=== PATIENT | male | born 1960 | race Caucasian/White ===

== ENCOUNTER 2016-09-16 22:33 | Emergency (ER) | payer OTHER ==
[~2016-09-16] VITALS: Ht 177.8 cm; Wt 126.9 kg
[~2016-09-16 22:33] MED LIST: ASPI325T PO; BETA0.054 TOPICAL; CALC500T35; CARV3.12 PO; CIAL10TA PO; FISH500C; GABA800T PO; IRBE75TA24 PO; MULT-135 PO; NITR1SUB3 SL; SIMV20TA PO
[2016-09-16 22:37] VITALS: BP 121/72; PULSE 72; RESP 20; TEMP 98.9; O2SAT 98
--- NOTE | 2016-09-16 23:11 | PD ---
HPI Chief Complaint: Musculoskeletal Complaint Time Seen by Provider: 23:04 Travel History International Travel<30 days: No Contact w/Intl Traveler<30days: No Traveled to known affect area: No History of Present Illness HPI This 55-year-old male says he had a fall this morning. He was standing on approximately fell on rocks and hit his right side of his chest and abdomen on the rocks. He is having increasing pain. The pain is aggravated by deep breathing. He took Motrin with minimal relief. He has not had fever or chills. It is a sharp pain aggravated by breathing. He is also having some pain in his abdomen. There is been no vomiting or diarrhea. He had no other injuries from fall. He takes aspirin daily, no other anticoagulants. He has an AICD. He has had 2 myocardial infarctions PFSH Past Medical History Hx Anticoagulant Therapy: Yes Cardiac Catheterization: Yes Cardiovascular Problems: Yes High Cholesterol: Yes Cerebrovascular Accident: Yes ( X2 2006) Diminished Hearing: No ?: Not Past Surgical History AICD: Yes Cardiac Surgery: Yes (CARDIAC DEFIBRILLATIOR) Coronary Stent: Yes Joint Replacement: Yes (R TKR) Social History Alcohol Use: No (OCC) Tobacco Use: No (QUIT 2006) Substance Use: No Allergies-Medications (Allergen,Severity, Reaction): Coded Allergies: Integrilin (Verified Adverse Reaction, Severe, BLEEDING, 02/18/16) Reported Meds & Prescriptions Reported Meds & Active Scripts Active Cialis (Tadalafil) 10 Mg Tab 10 Mg PO ONCE PRN Do not exceed 1 dose/day. Betamethasone Dipropionate Topical 0.05% Oint 1 Applic TOPICAL ONCE Reported Simvastatin 20 Mg Tab 20 Mg PO DAILY Nitroglycerin SL (Nitroglycerin) 0.4 Mg Subl 0.4 Mg SL DIRECTED PRN ONE TABLET UNDER THE TONGUE NEEDED FOR CHEST PAIN, MAY REPEAT EVERY FIVE MINUTES FOR A TOTAL OF 3 DOSES OR CALL 911 IF NO RELIEF Carvedilol 3.125 Mg Tab 3.125 Mg PO BID Calcium (Oyster Shell) 500 Mg Tab BID Multi Vitamin (Multiple Vitamin) 1 Tab Tab 1 Tab PO DAILY Fish Oil ([place]-3 Fatty Acids) 500 Mg Cap Aspirin 325 Mg Tab 325 Mg PO DAILY Avapro (Irbesartan) 75 Mg Tab 75 Mg PO DAILY Gabapentin 800 Mg Tab 800 Mg PO TID Review of Systems General / Constitutional: No: Fever, Chills Eyes: No: Diploplia, Blurred Vision HENT: No: Headaches, Vertigo Cardiovascular: Positive: Chest Pain or Discomfort Respiratory: Positive: Pleuritic Pain Gastrointestinal: Positive: Abdominal Pain Genitourinary: No: Frequency, Dysuria Musculoskeletal: No: Myalgias, Arthralgias Skin: No Rash Physical Exam Narrative GENERAL: Well-developed male SKIN: Warm and dry. HEAD: Atraumatic. Normocephalic. EYES: Pupils equal and round. No scleral icterus. No injection or drainage. ENT: No nasal bleeding or discharge. Mucous membranes pink and moist. NECK: Trachea midline. No JVD. CARDIOVASCULAR: Regular rate and rhythm. No murmur appreciated. RESPIRATORY: No accessory muscle use. Clear to auscultation. Breath sounds equal bilaterally. There is ecchymosis on the right side of the chest wall. The wall chest wall is quite tender though I don't feel crepitus GASTROINTESTINAL: Abdomen soft, there is right upper quadrant tenderness with local guarding nondistended. Hepatic and splenic margins not palpable. MUSCULOSKELETAL: No obvious deformities. No clubbing. No cyanosis. No edema. NEUROLOGICAL: Awake and alert. No obvious cranial nerve deficits. Motor grossly within normal limits. Normal speech. PSYCHIATRIC: Appropriate mood and affect; insight and judgment normal. Data Data Last Documented VS Vital Signs Date Time Temp Pulse Resp B/P Pulse Ox O2 Delivery O2 Flow Rate FiO2 09/16/16 22:47 16 09/16/16 22:37 98.9 72 121/72 98 Orders Complete Blood Count With Diff (09/16/16 23:04) Comprehensive Metabolic Panel (09/16/16 23:04) Sodium Chlor 0.9% 1000 Ml Inj (Ns 1000 M (09/16/16 23:15) Ondansetron Inj (Zofran Inj) (09/16/16 23:15) Hydromorphone Pf Inj (Dilaudid Pf Inj) (09/16/16 23:15) Chest, Single Ap (09/16/16 23:04) Ct Abd/Pel W Iv Contrast(Rout) (09/16/16 23:04) Labs Laboratory Tests Test 09/16/16 23:20 Sodium Level 140 MEQ/L Potassium Level 4.0 MEQ/L Chloride Level 104 MEQ/L MDM Medical Decision Making Medical Screen Exam Complete: Yes Emergency Medical Condition: Yes Medical Record Reviewed: Yes Differential Diagnosis Differential includes chest wall pain, rib fracture, liver injury Narrative Course Workup including chest x-ray and CT scan of the abdomen and pelvis have been ordered. Chest x-ray does not show any fracture and lung pack appear clear. Diagnosis Primary Impression: Chest wall contusion Scripts Oxycodone-Acetaminophen (Percocet)10-325 mg Tab1 Tab PO Q4H PRN (PAIN) #30 TAB Ref 0 Prov:Kimani Fagan MD 09/16/16 Disposition: 01 DISCHARGE HOME Condition: Stable Kimani Fagan MD Sep 16, 2016 23:11
[2016-09-16] MEDS ORDERED: SODIUM CHLOR 0.9% 1000 ML INJ 1,000 ML IV SCH (23:15)
[2016-09-16] MEDS ORDERED: ONDANSETRON HCL 4 MG/2 ML VIAL IV PUSH ONE (23:15)
[2016-09-16] MEDS ORDERED: HYDROmorphone HCL PF 1 MG/ML VIAL IV PUSH ONE (23:15)
[2016-09-16 23:34] LABS: AUTOMATED NEUTROPHIL # 6.9 TH/MM3 (1.8-7.7); BASOPHIL # 0.1 TH/MM3 (0-0.2); BASOPHIL % 0.8 % (0.0-2.0); EOSINOPHIL # 0.3 TH/MM3 (0-0.4); HEMATOCRIT 39.2 % (39.0-51.0); LYMPH % 25.6 % (9.0-44.0); LYMPHOCYTE # 2.8 TH/MM3 (1.0-4.8); MEAN CELL VOLUME 90.6 FL (80.0-100.0); MEAN CORPUSCULAR HEMOGLOBIN 30.5 PG (27.0-34.0); MEAN CORPUSCULAR HGB CONC 33.7 % (32.0-36.0); MONO % 7.1 % (0.0-8.0); NEUT % 63.5 % (16.0-70.0); PLATELET COUNT 212 TH/MM3 (150-450); RED BLOOD COUNT 4.33 MIL/MM3 (4.50-5.90); RED CELL DISTRIBUTION WIDTH 13.6 % (11.6-17.2); WHITE BLOOD COUNT 10.9 TH/MM3 (4.0-11.0)
[2016-09-16 23:41] LABS: CHLORIDE 104 MEQ/L (98-107); SODIUM (NA) 140 MEQ/L (136-145)
[2016-09-16] MEDS ORDERED: PERC10TA27 PO (23:43)
[2016-09-16 23:45] LABS: ANION GAP 7 MEQ/L (5-15); BICARBONATE 28.9 MEQ/L (21.0-32.0); BLOOD UREA NITROGEN 19 MG/DL (7-18)
[2016-09-16 23:48] LABS: ALT (GPT) 35 U/L (12-78); AST (GOT) 20 U/L (15-37); GLOMERULAR FILTRATION RATE 79 ML/MIN (>89)
[2016-09-16 23:50] LABS: TOTAL BILIRUBIN ADULT 0.3 MG/DL (0.2-1.0)
[2016-09-16 23:51] LABS: ALKALINE PHOSPHATASE 79 U/L (45-117)
--- NOTE | 2016-09-16 23:51 | RADHPO ---
EXAM DATE/TIME: 09/16/2016 23:35 [facility] COMPARISON: CHEST SINGLE AP, February 18, 2016, 19:43. INDICATIONS : Right chest pain after falling MEDICAL HISTORY : None. SURGICAL HISTORY : Pacemaker. ENCOUNTER: Initial ACUITY: 1 day PAIN SCORE: 8/10 LOCATION: Right chest FINDINGS: A single view of the chest demonstrates the lungs to be symmetrically aerated without evidence of mas s, infiltrate or effusion. The cardiomediastinal contours are unremarkable. There is a pacemaker ove rlying the left chest. Osseous structures are intact. No significant change. CONCLUSION: No acute disease. No significant change has occurred. Christopher Parekh MD on September 16, 2016 at 23:49 Board Certified Radiologist. This report was verified electronically.
[2016-09-16 23:58] LABS: HEMO FLAGS DIFF FINAL
[2016-09-17] MEDS ORDERED: HYDROmorphone HCL PF 1 MG/ML VIAL IV PUSH ONE
[2016-09-17] MEDS ORDERED: IOHEXOL 350 MG/ML 10 ML VIAL (for RAD DIAG) IV ONE (00:35)
--- NOTE | 2016-09-17 00:42 | RADHPO ---
EXAM DATE/TIME: 09/17/2016 00:14 [facility] COMPARISON: No previous studies available for comparison. INDICATIONS : Mechanical fall. Right sided chest and abdomen trauma. IV CONTRAST: 96 cc Omnipaque 350 (iohexol) IV ORAL CONTRAST: No oral contrast ingested. RADIATION DOSE: 30.96 CTDIvol (mGy) MEDICAL HISTORY : None SURGICAL HISTORY : Coronary artery stent. Defibrillator. ENCOUNTER: Initial ACUITY: 1 day PAIN SCALE: 6/10 LOCATION: Right Abdomen. TECHNIQUE: Volumetric scanning of the abdomen and pelvis was performed. Using automated exposure control and ad justment of the mA and/or kV according to patient size, radiation dose was kept as low as reasonably achievable to obtain optimal diagnostic quality images. FINDINGS: LOWER LUNGS: The visualized lower lungs are clear. No evidence of pneumothorax. LIVER: Homogeneous density without lesion. There is no dilation of the biliary tree. No calcified gallston es. SPLEEN: Normal size without lesion. PANCREAS: Within normal limits. KIDNEYS: Normal in size and shape. There is no mass, stone or hydronephrosis. ADRENAL GLANDS: Within normal limits. VASCULAR: There is no aortic aneurysm. Atherosclerotic changes BOWEL/MESENTERY: The stomach, small bowel, and colon demonstrate no acute abnormality. There is no free intraperitone al air or fluid. A few scattered diverticula are noted along the sigmoid colon. No inflammatory de dios es are demonstrated. ABDOMINAL WALL: Within normal limits. RETROPERITONEUM: There is no lymphadenopathy. BLADDER: No wall thickening or mass. REPRODUCTIVE: Within normal limits. INGUINAL: There is no lymphadenopathy or hernia. MUSCULOSKELETAL: There are nondisplaced fractures involving the right ninth, 10th and 11th ribs. Primary bony degenera tive changes of the lumbar spine and pelvis. CONCLUSION: 1. Nondisplaced fractures of the ninth, 10th and 11th ribs. 2. Otherwise, unremarkable exam. Christopher Parekh MD on September 17, 2016 at 0:35 Board Certified Radiologist. This report was verified electronically.
[2016-09-17] MEDS ORDERED: oxyCODONE/ACETAMINOPHEN 7.5 MG/325 MG TAB PO ONE (01:00)
[2016-09-17] MEDS ORDERED: ONDANSETRON HCL 4 MG/2 ML VIAL IV ONE (01:00)
[2016-09-17 01:17] VITALS: BP 148/77
[2016-09-25] MEDS ORDERED: ACYC800T PO (11:58)
[2016-09-25] MEDS ORDERED: SIMV20TA PO (11:58)
[2016-09-25] MEDS ORDERED: CARV3.12 PO (11:58)
[2016-09-25] MEDS ORDERED: ALBUAER3 INH (11:59)
[2016-09-25] MEDS ORDERED: OXYC-432 PO (12:00)
[2016-10-09] MEDS ORDERED: OXYC1CAP PO (11:47)
[2016-11-09] MEDS ORDERED: VIAG100T PO (09:01)
[2016-11-09] MEDS ORDERED: DOXY100C PO (09:02)
[2016-11-09] MEDS ORDERED: ACYC800T PO (09:03)
[2016-11-09] MEDS ORDERED: CIAL20TA PO (13:41)
== END 2016-09-17 01:21 | disposition home or self-care (01) ==
LOC: PHED 22:33
DX: S20.211A Contusion of right front wall of thorax, initial encounter (principal); S22.41XA Multiple fractures of ribs, right side, initial encounter for closed fracture; I25.2 Old myocardial infarction; E78.00 Pure hypercholesterolemia, unspecified; Z79.82 Long term (current) use of aspirin; Z95.810 Presence of automatic (implantable) cardiac defibrillator; Z86.73 Personal history of transient ischemic attack (TIA), and cerebral infarction without residual deficits; Z87.891 Personal history of nicotine dependence; W19.XXXA Unspecified fall, initial encounter
CPT/HCPCS: 71010; 74177; 80053; 85025; 96361; 96374; 96375; 96376; 99284; J1170; J2405; J7030; Q9967

== ENCOUNTER 2016-12-14 14:43 | Observation (INO) | payer OTHER ==
[~2016-12-14] VITALS: Ht 177.8 cm; Wt 115.5 kg
[2016-12-14] VITALS (9 sets, daily range): BP systolic 103–147; BP diastolic 51–79; PULSE 67–86; RESP 16–32; TEMP 97.7–98.9; O2SAT 97–100
[~2016-12-14 14:43] MED LIST changes: +ACYC800T PO; +ALBUAER3 INH; -CIAL10TA PO; +CIAL20TA PO; +DOXY100C PO; -NITR1SUB3 SL; +OXYC1CAP PO
[2016-12-14] MEDS ORDERED: SODIUM CHLORIDE 0.9% FLUSH 10 ML FLUSH IVF PRN (15:00)
[2016-12-14] MEDS ORDERED: SODIUM CHLORID 0.9% 500 ML INJ 500 ML IV ONE ×2 (15:00→17:45)
[2016-12-14] MEDS ORDERED: NITROGLYCERIN 0.4 MG SL 25 TABS/BTL SL ONE (15:00)
--- NOTE | 2016-12-14 15:06 | PD ---
HPI Chief Complaint: Chest Pain Time Seen by Provider: 14:49 Travel History International Travel<30 days: No Contact w/Intl Traveler<30days: No Traveled to known affect area: No History of Present Illness HPI 56-year-old male presents with 1 hour onset of chest pain. Feels like pressure. This occurred while he was at work. He states when it started he felt like he was gonna pass out but did not lose consciousness. He states at its intensity it was 7 out of 10. Now at rest it is 4 out of 10. He states he had a heart attack twice in 2006. He had a stent placed on his first catheterization and when they followed it up they just monitored him. He states he had a bad reaction to Integrilin where he needed multiple transfusions. He states that he follows with Dr. Carter and his last stress test was 2 years ago and his last catheterization was in 2006. He states that he had an aspirin today. He denies other concurrent complaints. PFSH Past Medical History Hx Anticoagulant Therapy: Yes Atrial Fibrillation: Yes Cardiac Catheterization: Yes Cardiovascular Problems: Yes High Cholesterol: Yes Cerebrovascular Accident: Yes ( X2 2006) Diminished Hearing: No Myocardial Infarction: Yes (X2) Past Surgical History AICD: Yes Cardiac Surgery: Yes (CARDIAC DEFIBRILLATIOR) Coronary Stent: Yes Joint Replacement: Yes (R TKR) Social History Alcohol Use: No (OCC) Tobacco Use: No (QUIT 2006) Substance Use: No Allergies-Medications (Allergen,Severity, Reaction): Coded Allergies: Integrilin (Verified Adverse Reaction, Severe, BLEEDING, 02/18/16) Reported Meds & Prescriptions Reported Meds & Active Scripts Active Cialis (Tadalafil) 20 Mg Tab 20 Mg PO DAILY PRN Do not exceed 1 dose/day. Acyclovir 800 Mg Tab 800 Mg PO 5 TIMES A DAY Proair Hfa 8.5 GM Inh (Albuterol Sulfate) 90 Mcg/Act Aer 2 Puff INH Q4-6H PRN 108 mcg/actuation Simvastatin 20 Mg Tab 20 Mg PO DAILY Carvedilol 3.125 Mg Tab 3.125 Mg PO BID Reported Calcium (Oyster Shell) 500 Mg Tab BID Multi Vitamin (Multiple Vitamin) 1 Tab Tab 1 Tab PO DAILY Fish Oil ([place]-3 Fatty Acids) 500 Mg Cap Aspirin 325 Mg Tab 325 Mg PO DAILY Avapro (Irbesartan) 75 Mg Tab 75 Mg PO DAILY Gabapentin 800 Mg Tab 800 Mg PO TID Review of Systems Except as stated in HPI: all other systems reviewed are Neg Physical Exam Narrative GENERAL: Well-nourished, well-developed patient. SKIN: Warm and diaphoretic, erythema noted to face and neck HEAD: Normocephalic and atraumatic. EYES: No injection or drainage. ENT: No nasal drainage noted. NECK: Supple, trachea midline. CARDIOVASCULAR: Regular rate and rhythm RESPIRATORY: Breath sounds equal bilaterally at apices. No accessory muscle use. GASTROINTESTINAL: Abdomen soft, non-tender, nondistended. EXTREMITIES: No edema. NEUROLOGICAL: Awake and alert. Motor and sensory grossly within normal limits. Normal speech. Data Data Last Documented VS Vital Signs Date Time Temp Pulse Resp B/P Pulse Ox O2 Delivery O2 Flow Rate FiO2 12/14/16 14:53 100 Nasal Cannula 2 12/14/16 14:49 97.7 78 24 138/79 Orders Electrocardiogram (12/14/16 14:51) B-Type Natriuretic Peptide (12/14/16 14:51) Ckmb (Isoenzyme) Profile (12/14/16 14:51) Complete Blood Count With Diff (12/14/16 14:51) Comprehensive Metabolic Panel (12/14/16 14:51) Magnesium (Mg) (12/14/16 14:51) Prothrombin Time / Inr (Pt) (12/14/16 14:51) Act Partial Throm Time (Ptt) (12/14/16 14:51) Troponin I (12/14/16 14:51) Chest, Single Ap (12/14/16 14:51) Ecg Monitoring (12/14/16 14:51) Bilateral Bp Monitoring (12/14/16 14:51) Iv Access Insert/Monitor (12/14/16 14:51) Oximetry (12/14/16 14:51) Oxygen Administration (12/14/16 14:51) Sodium Chloride 0.9% Flush (Ns Flush) (12/14/16 15:00) Sodium Chlorid 0.9% 500 Ml Inj (Ns 500 M (12/14/16 15:00) Nitroglycerin Sl (Nitrostat Sl) (12/14/16 15:00) Electrocardiogram (12/14/16 ) CKMB (12/14/16 14:52) CKMB% (12/14/16 14:52) Nitroglycerin 2% Oint (Nitroglycerin 2% (12/14/16 17:00) Consult Cardiology (12/14/16 ) Nitroglycerin-Dextrose Inj (Nitroglyceri (12/14/16 17:45) Heparin Infusion ANNIA.Q1H (12/14/16 17:32) Heparin Inj (Heparin Inj) (12/14/16 17:45) Heparin Inj (Heparin Inj) (12/14/16 23:45) Heparin Inj (Heparin Inj) (12/14/16 23:45) Heparin-D5w Inj (Heparin-D5w Inj) (12/14/16 17:45) Cbc No Diff, Includes Plts (12/17/16 06:00) Act Partial Throm Time (Ptt) (12/15/16 00:32) Occult Blood (Hemoccult) Stool (12/14/16 17:32) (Hub Use Only)Inp Phy Cons/Ref (12/14/16 ) Admit Order (Ed Use Only) (12/14/16 17:35) Labs Laboratory Tests Test 12/14/16 14:52 White Blood Count 9.4 TH/MM3 Red Blood Count 4.29 MIL/MM3 Hemoglobin 13.6 GM/DL Hematocrit 39.0 % Mean Corpuscular Volume 90.9 FL Mean Corpuscular Hemoglobin 31.7 PG Mean Corpuscular Hemoglobin 34.9 % Concent Red Cell Distribution Width 14.5 % Platelet Count 228 TH/MM3 Mean Platelet Volume 8.2 FL Neutrophils (%) (Auto) 59.1 % Lymphocytes (%) (Auto) 30.4 % Monocytes (%) (Auto) 8.1 % Eosinophils (%) (Auto) 1.6 % Basophils (%) (Auto) 0.8 % Neutrophils # (Auto) 5.6 TH/MM3 Lymphocytes # (Auto) 2.9 TH/MM3 Monocytes # (Auto) 0.8 TH/MM3 Eosinophils # (Auto) 0.1 TH/MM3 Basophils # (Auto) 0.1 TH/MM3 CBC Comment DIFF FINAL Differential Comment Prothrombin Time 12.0 SEC Prothromb Time International 1.1 RATIO Ratio Activated Partial 27.3 SEC Thromboplast Time Sodium Level 140 MEQ/L Potassium Level 3.7 MEQ/L Chloride Level 108 MEQ/L Carbon Dioxide Level 23.0 MEQ/L Anion Gap 9 MEQ/L Blood Urea Nitrogen 13 MG/DL Creatinine 0.94 MG/DL Estimat Glomerular Filtration 83 ML/MIN Rate Random Glucose 95 MG/DL Calcium Level 8.7 MG/DL Magnesium Level 1.9 MG/DL Total Bilirubin 0.5 MG/DL Aspartate Amino Transf 27 U/L (AST/SGOT) Alanine Aminotransferase 42 U/L (ALT/SGPT) Alkaline Phosphatase 69 U/L Total Creatine Kinase 293 U/L Creatine Kinase MB 6.3 NG/ML Troponin I LESS THAN 0.02 NG/ML B-Type Natriuretic Peptide 43 PG/ML Total Protein 7.1 GM/DL Albumin 3.7 GM/DL MDM Medical Decision Making Medical Screen Exam Complete: Yes Emergency Medical Condition: Yes Medical Record Reviewed: Yes (past history confirmed) Interpretation(s) EKG without STEMI criteria, normal sinus rhythm, no change from prior tracing Repeat EKG without change or STEMI criteria CBC & BMP Diagram 12/14/16 14:52 Last 24 hours Impressions Chest X-Ray 12/14/16 1451 Signed Impressions: Service Date/Time: Wednesday, December 14, 2016 15:38 - CONCLUSION: No acute cardiopulmonary disease. Harrison Herbert MD Differential Diagnosis CT, gastritis, musculoskeletal, angina Narrative Course Will check blood work, chest x-ray, EKG and dose with nitroglycerin and reevaluate. Patient states he did not have nitroglycerin at home as he has Cialis but he has not taken that for 2 weeks. ed workup no acute, pain Unresolved Will place Nitropaste Pain unresolved still will change to nitro drip and started on heparin and discuss with cardiology, patient agrees to admission Patient feeling better on nitroglycerin drip, will monitor in [facility] Critical Care Narrative Aggregate critical care time was 31 minutes. Time to perform other separately billable procedures was not included in the critical care time. My time did not include minutes spent treating any other patients simultaneously or on activities that did not directly contribute to the patient's treatment. The services I provided to this patient were to treat and/or prevent clinically significant deterioration that could result in: mi, arrhythmia, hypertension.... I provided critical care services requiring my management, as noted below: Chart data review, documentation time, medication orders and management, vital sign assessments/reviewing monitor data, ordering and reviewing lab tests, ordering and interpreting/reviewing x-rays and diagnostic studies, care of the patient and discussion of the patient with the admitting physicians. Physician Communication Physician Communication dr cedillo agrees to nitro and heparin drip, npo, will follow dr james agrees to admit Diagnosis Primary Impression: Unstable angina Admitting Information Admitting Physician Requests: Admit Heather Bell MD Dec 14, 2016 15:06 Heather Bell MD Dec 14, 2016 15:06
[2016-12-14 15:21] LABS: AUTOMATED NEUTROPHIL # 5.6 TH/MM3 (1.8-7.7); BASOPHIL # 0.1 TH/MM3 (0-0.2); BASOPHIL % 0.8 % (0.0-2.0); EOSINOPHIL # 0.1 TH/MM3 (0-0.4); EOSINOPHIL % 1.6 % (0.0-4.0); HEMO FLAGS DIFF FINAL; LYMPH % 30.4 % (9.0-44.0); LYMPHOCYTE # 2.9 TH/MM3 (1.0-4.8); MEAN CELL VOLUME 90.9 FL (80.0-100.0); MEAN CORPUSCULAR HEMOGLOBIN 31.7 PG (27.0-34.0); MEAN CORPUSCULAR HGB CONC 34.9 % (32.0-36.0); MONO % 8.1 % (0.0-8.0); NEUT % 59.1 % (16.0-70.0); PLATELET COUNT 228 TH/MM3 (150-450); RED BLOOD COUNT 4.29 MIL/MM3 (4.50-5.90); RED CELL DISTRIBUTION WIDTH 14.5 % (11.6-17.2); WHITE BLOOD COUNT 9.4 TH/MM3 (4.0-11.0)
[2016-12-14 15:34] LABS: ALT (GPT) 42 U/L (12-78); ANION GAP 9 MEQ/L (5-15); AST (GOT) 27 U/L (15-37); BLOOD UREA NITROGEN 13 MG/DL (7-18); CHLORIDE 108 MEQ/L (98-107); GLOMERULAR FILTRATION RATE 83 ML/MIN (>89); MAGNESIUM 1.9 MG/DL (1.5-2.5); POTASSIUM 3.7 MEQ/L (3.5-5.1); SODIUM (NA) 140 MEQ/L (136-145)
[2016-12-14 15:38] LABS: ALKALINE PHOSPHATASE 69 U/L (45-117); CREATINE KINASE 293 U/L (39-308); TOTAL BILIRUBIN ADULT 0.5 MG/DL (0.2-1.0)
[2016-12-14 15:43] LABS: APTT (PATIENT) 27.3 SEC (24.3-30.1); INTERNATIONAL NORMALIZED RATIO 1.1 RATIO
[2016-12-14 15:50] LABS: CKMB 6.3 NG/ML (0.5-3.6)
--- NOTE | 2016-12-14 16:36 | RADRPT ---
EXAM DATE/TIME: 12/14/2016 15:38 [facility] COMPARISON: CHEST SINGLE AP, September 16, 2016, 23:35. INDICATIONS : Chest pain starting today MEDICAL HISTORY : None. SURGICAL HISTORY : Defibrillator ENCOUNTER: Initial ACUITY: 1 day PAIN SCORE: 10/10 LOCATION: Bilateral chest FINDINGS: The lungs are clear without infiltrate, nodule, or mass. There is no appreciable pleural effusion fo r technique. Heart and mediastinum are unremarkable. Subclavian pacer wire is present with tip rig ht ventricle. CONCLUSION: No acute cardiopulmonary disease. Harrison Herbert MD on December 14, 2016 at 16:34 Board Certified Radiologist. This report was verified electronically.
[2016-12-14] MEDS ORDERED: NITROGLYCERIN 2% OINT 1 GM PACKET TOP ONE (17:00)
[2016-12-14] MEDS ORDERED: HEPARIN SODIUM - IV 10,000 UNITS/10 ML VIAL IV ONE (17:45)
[2016-12-14] MEDS ORDERED: NITROGLYCERIN-DEXTROSE INJ 250 ML IV ONE (17:45)
[2016-12-14] MEDS ORDERED: HEPARIN-D5W INJ 250 ML IV SCH (17:45)
[2016-12-14] MEDS ORDERED: ACETAMINOPHEN/HYDROcodone 325 MG/7.5 MG TAB PO PRN (18:15)
[2016-12-14] MEDS ORDERED: MORPHINE SULFATE 4 MG/ML INJ IV PRN (18:15)
[2016-12-14] MEDS ORDERED: ACETAMINOPHEN 500 MG CPLT PO PRN (18:15)
[2016-12-14] MEDS ORDERED: SODIUM CHLORIDE 0.9% FLUSH 10 ML FLUSH IV FLUSH PRN (18:15)
--- NOTE | 2016-12-14 19:02 | HHI.HP ---
[facility] Maria De Jesus Chi MD Admission Diagnosis unstable angina Diagnoses: (1) Unstable angina (2) Shingles rash (3) Hypertension (4) Atrial fibrillation Chief Complaint: Chest pressure Travel History International Travel<30 Days: No Contact w/Intl Traveler <30 Da: No Traveled to Known Affected Are: No History of Present Illness 56-year-old man with a history of atrial fibrillation, hypertension, prior MIs and pacemaker placement drove himself to the ED for evaluation of chest pressure this 2 PM rated 8/10 in intensity associated with radiation to left arm as well as diaphoresis and shortness of breath. Patient also report an episode of presyncope. Patient reports his first heart attack in 2006 for which he underwent left heart catheterization and stent placement. He had a normal stress test performed 2 years ago. Although patient denies any GI bleed , fecal occult blood test was positive in ED. Review of Systems Other 12 systems reviewed and are negative except for the one mentioned in history of present illness Past Family Social History Past Medical History Atrial Fibrillation: Yes Cardiac Catheterization: Yes Cardiovascular Problems: Yes High Cholesterol: Yes Cerebrovascular Accident: Yes ( X2 2006) Myocardial Infarction: Yes (X2) Past Surgical History AICD: Yes Cardiac Surgery: Yes (CARDIAC DEFIBRILLATIOR) Coronary Stent: Yes Joint Replacement: Yes (R TKR) Reported Medications Cialis (Tadalafil) 20 Mg Tab 20 Mg PO DAILY PRN Do not exceed 1 dose/day. Acyclovir 800 Mg Tab 800 Mg PO 5 TIMES A DAY Proair Hfa 8.5 GM Inh (Albuterol Sulfate) 90 Mcg/Act Aer 2 Puff INH Q4-6H PRN 108 mcg/actuation Simvastatin 20 Mg Tab 20 Mg PO DAILY Carvedilol 3.125 Mg Tab 3.125 Mg PO BID Reported Calcium (Oyster Shell) 500 Mg Tab BID Multi Vitamin (Multiple Vitamin) 1 Tab Tab 1 Tab PO DAILY Fish Oil ([place]-3 Fatty Acids) 500 Mg Cap Aspirin 325 Mg Tab 325 Mg PO DAILY Avapro (Irbesartan) 75 Mg Tab 75 Mg PO DAILY Gabapentin 800 Mg Tab 800 Mg PO TID Allergies: Coded Allergies: Integrilin (Verified Adverse Reaction, Severe, BLEEDING, 02/18/16) Family History Mother had cancer, heart disease Father had atrial fibrillation, heart disease Sister has CHF, heart disease, AICD placement Brother has heart disease Social History Alcohol Use: No (OCC) Tobacco Use: No (QUIT 2006) Substance Use: No Physical Exam Vital Signs Vital Signs Date Time Temp Pulse Resp B/P Pulse Ox O2 Delivery O2 Flow Rate FiO2 12/14/16 18:40 76 147/63 12/14/16 18:30 72 116/60 12/14/16 18:22 112/63 12/14/16 18:20 113/58 12/14/16 14:53 100 Nasal Cannula 2 12/14/16 14:49 97.7 78 24 138/79 98 12/14/16 14:46 98.9 80 32 124/64 100 122/72 Physical Exam GENERAL: This is a well-nourished, well-developed patient, in no apparent distress. SKIN: + rashes under left armpit, no ecchymoses or lesions. Cool and dry. HEAD: Atraumatic. Normocephalic. No temporal or scalp tenderness. EYES: Pupils equal round and reactive. Extraocular motions intact. No scleral icterus. No injection or drainage. ENT: Nose without bleeding, purulent drainage or septal hematoma. Throat without erythema, tonsillar hypertrophy or exudate. Uvula midline. Airway patent. NECK: Trachea midline. No JVD or lymphadenopathy. Supple, nontender, no meningeal signs. CARDIOVASCULAR: Regular rate and rhythm without murmurs, gallops, or rubs. RESPIRATORY: Clear to auscultation. Breath sounds equal bilaterally. No wheezes , rales, or rhonchi. GASTROINTESTINAL: Abdomen soft, non-tender, nondistended. No hepato-splenomegaly , or palpable masses. No guarding. MUSCULOSKELETAL: Extremities without clubbing, cyanosis, or edema. No joint tenderness, effusion, or edema noted. No calf tenderness. Negative Homans sign bilaterally. NEUROLOGICAL: Awake and alert. Cranial nerves II through XII intact. Motor and sensory grossly within normal limits. Five out of 5 muscle strength in all muscle groups. Normal speech. Laboratory Laboratory Tests Test 12/14/16 14:52 White Blood Count 9.4 Red Blood Count 4.29 Hemoglobin 13.6 Hematocrit 39.0 Mean Corpuscular Volume 90.9 Mean Corpuscular Hemoglobin 31.7 Mean Corpuscular Hemoglobin 34.9 Concent Red Cell Distribution Width 14.5 Platelet Count 228 Mean Platelet Volume 8.2 Neutrophils (%) (Auto) 59.1 Lymphocytes (%) (Auto) 30.4 Monocytes (%) (Auto) 8.1 Eosinophils (%) (Auto) 1.6 Basophils (%) (Auto) 0.8 Neutrophils # (Auto) 5.6 Lymphocytes # (Auto) 2.9 Monocytes # (Auto) 0.8 Eosinophils # (Auto) 0.1 Basophils # (Auto) 0.1 CBC Comment DIFF FINAL Differential Comment Prothrombin Time 12.0 Prothromb Time International 1.1 Ratio Activated Partial 27.3 Thromboplast Time Sodium Level 140 Potassium Level 3.7 Chloride Level 108 Carbon Dioxide Level 23.0 Anion Gap 9 Blood Urea Nitrogen 13 Creatinine 0.94 Estimat Glomerular Filtration 83 Rate Random Glucose 95 Calcium Level 8.7 Magnesium Level 1.9 Total Bilirubin 0.5 Aspartate Amino Transf 27 (AST/SGOT) Alanine Aminotransferase 42 (ALT/SGPT) Alkaline Phosphatase 69 Total Creatine Kinase 293 Creatine Kinase MB 6.3 Troponin I LESS THAN 0.02 B-Type Natriuretic Peptide 43 Total Protein 7.1 Albumin 3.7 Result Diagram: 12/14/16 1452 12/14/16 1452 Imaging Last Impressions Chest X-Ray 12/14/16 1451 Signed Impressions: Service Date/Time: Wednesday, December 14, 2016 15:38 - CONCLUSION: No acute cardiopulmonary disease. Harrison Herbert MD Assessment and Plan Problem List: (1) Unstable angina ICD Code: I20.0 Status: Acute (2) Hypertension ICD Code: I10 Status: Acute (3) Shingles rash ICD Code: B02.9 Status: Acute (4) Atrial fibrillation ICD Code: I48.91 Status: Acute Assessment and Plan 56-year-old man with Unstable angina: -Chest x-ray noted and reviewed by me with No acute cardiopulmonary disease -Continue ACS rule out per protocol with serial cardiac enzyme and EKGs, check 2 -D echo. -Cardiology consultation pending for evaluation for possible left heart catheterization -Secondary to positive guaiac, will hold heparin drip -Continue with Nitro drip and resume beta michael/statin Shingle flareup Start Acyclovir COPD No exacerbation, resume outpatient medication and DuoNeb when necessary Hyperlipidemia Check lipid profile, resume statin DVT prophylaxis: Bilateral SCDs, Heparin on hold Code Status Full code Discussed Condition With Patient, ED physician Physician Certification 2 Midnight Certification Type: Admission for Inpatient Services Order for Inpatient Services The services are ordered in accordance with Medicare regulations or non- Medicare payer requirements, as applicable. In the case of services not specified as inpatient-only, they are appropriately provided as inpatient services in accordance with the 2-midnight benchmark. Estimated LOS (days): 2 days is the estimated time the patient will need to remain in the hospital, assuming treatment plan goals are met and no additional complications. Post-Hospital Plan: Not yet determined Phu Larios MD Dec 14, 2016 19:02
[2016-12-14] MEDS ORDERED: TEMAZEPAM 15 MG CAP PO PRN (21:00)
[2016-12-14] MEDS: CARVEDILOL 3.125 MG TAB PO SCH (21:00)
[2016-12-14] MEDS: ALUMINUM/MAGNESIUM/SIMETH 30 ML CUP PO SCH (21:00)
[2016-12-14] MEDS: SODIUM CHLORIDE 0.9% FLUSH 10 ML FLUSH IV FLUSH SCH (21:19)
[2016-12-14] MEDS ORDERED: NITROGLYCERIN-DEXTROSE INJ 250 ML IV SCH (21:30)
[2016-12-14 22:28] LABS: CREATINE KINASE 203 U/L (39-308); MAGNESIUM 2.1 MG/DL (1.5-2.5)
[2016-12-14] MEDS: ACYCLOVIR 800 MG TAB PO SCH (22:39)
[2016-12-14] MEDS ORDERED: HEPARIN SODIUM - IV 10,000 UNITS/10 ML VIAL IV PRN ×2 (23:45)
[2016-12-15] VITALS (7 sets, daily range): BP systolic 108–149; BP diastolic 52–91; PULSE 62–88; RESP 14–19; TEMP 97.7–98.6; O2SAT 96–97
[2016-12-15] MEDS ORDERED: NITROGLYCERIN 2% OINT 1 GM PACKET TOP SCH
[2016-12-15 05:04] LABS: CREATINE KINASE 163 U/L (39-308); HDL CHOLESTEROL 24.7 MG/DL (40.0-60.0); LDL CHOLESTEROL 43 MG/DL (0-99)
[2016-12-15] MEDS: ACYCLOVIR 800 MG TAB PO SCH ×4 (06:52→22:40)
[2016-12-15] MEDS ORDERED: IRBESARTAN 75 MG TAB PO SCH (09:00)
[2016-12-15] MEDS: GABAPENTIN 400 MG CAP PO SCH ×5 (09:00→17:35)
[2016-12-15] MEDS: SODIUM CHLORIDE 0.9% FLUSH 10 ML FLUSH IV FLUSH SCH ×2 (09:00→21:16)
--- NOTE | 2016-12-15 09:32 | HHI.PR ---
Subjective Remarks This is a pleasant 56 y/o Male with Atrial Fibrillation, Hypertension, prior [place] and pacemaker placement, who came to ER with Chest pain, rated 8/10 in intensity associated with radiation to left arm as well as diaphoresis and shortness of breath. Patient also report an episode of presyncope. Patient reports his first heart attack in 2006 for which he underwent left heart catheterization and stent placement. He had a normal stress test performed 2 years ago. hines also Hyperlipidemia, CVA x 2 2006, [place] x 2. Followed by rating specialist doctor John, recommended for Possible Stress test versus Cardiac cath depend of interrogated Pacemaker at this time continue with Oppressive sensation but his Cardiac Enzymes negative. continue present care. Objective Vital Signs Date Time Temp Pulse Resp B/P Pulse Ox O2 Delivery O2 Flow Rate FiO2 12/15/16 05:57 62 16 125/64 97 Nasal Cannula 2 12/15/16 02:33 78 16 108/52 96 Nasal Cannula 2 12/14/16 22:51 86 16 103/51 98 Nasal Cannula 2 12/14/16 21:34 67 18 108/51 97 Nasal Cannula 2 12/14/16 19:20 75 16 114/59 97 12/14/16 18:40 76 147/63 12/14/16 18:30 72 116/60 12/14/16 18:22 112/63 12/14/16 18:20 113/58 12/14/16 14:53 100 Nasal Cannula 2 12/14/16 14:49 97.7 78 24 138/79 98 12/14/16 14:46 98.9 80 32 124/64 100 122/72 Result Diagram: 12/14/16 1452 12/14/16 1452 Imaging Last Impressions Chest X-Ray 12/14/16 1451 Signed Impressions: Service Date/Time: Wednesday, December 14, 2016 15:38 - CONCLUSION: No acute cardiopulmonary disease. Harrison Herbert MD Procedures NO procedures performed. Other Results Laboratory Tests Test 12/14/16 12/14/16 12/15/16 14:52 21:40 04:10 White Blood Count 9.4 TH/MM3 Red Blood Count 4.29 MIL/MM3 Hemoglobin 13.6 GM/DL Hematocrit 39.0 % Mean Corpuscular Volume 90.9 FL Mean Corpuscular Hemoglobin 31.7 PG Mean Corpuscular Hemoglobin 34.9 % Concent Red Cell Distribution Width 14.5 % Platelet Count 228 TH/MM3 Mean Platelet Volume 8.2 FL Neutrophils (%) (Auto) 59.1 % Lymphocytes (%) (Auto) 30.4 % Monocytes (%) (Auto) 8.1 % Eosinophils (%) (Auto) 1.6 % Basophils (%) (Auto) 0.8 % Neutrophils # (Auto) 5.6 TH/MM3 Lymphocytes # (Auto) 2.9 TH/MM3 Monocytes # (Auto) 0.8 TH/MM3 Eosinophils # (Auto) 0.1 TH/MM3 Basophils # (Auto) 0.1 TH/MM3 CBC Comment DIFF FINAL Differential Comment Prothrombin Time 12.0 SEC Prothromb Time International 1.1 RATIO Ratio Activated Partial 27.3 SEC Thromboplast Time Sodium Level 140 MEQ/L Potassium Level 3.7 MEQ/L Chloride Level 108 MEQ/L Carbon Dioxide Level 23.0 MEQ/L Anion Gap 9 MEQ/L Blood Urea Nitrogen 13 MG/DL Creatinine 0.94 MG/DL Estimat Glomerular Filtration 83 ML/MIN Rate Random Glucose 95 MG/DL Calcium Level 8.7 MG/DL Total Bilirubin 0.5 MG/DL Aspartate Amino Transf 27 U/L (AST/SGOT) Alanine Aminotransferase 42 U/L (ALT/SGPT) Alkaline Phosphatase 69 U/L Creatine Kinase MB 6.3 NG/ML B-Type Natriuretic Peptide 43 PG/ML Total Protein 7.1 GM/DL Albumin 3.7 GM/DL Magnesium Level 2.1 MG/DL Total Creatine Kinase 163 U/L Troponin I LESS THAN 0.02 NG/ML Triglycerides Level 172 MG/DL Cholesterol Level 102 MG/DL LDL Cholesterol 43 MG/DL HDL Cholesterol 24.7 MG/DL Cholesterol/HDL Ratio 4.12 RATIO Objective Remarks GENERAL: Obesity, in no apparent distress. SKIN: Cool and dry. HEAD: Atraumatic. Normocephalic. No temporal or scalp tenderness. EYES: Pupils equal round and reactive. Extraocular motions intact. ENT: Nose without bleeding. NECK: Trachea midline. No JVD or lymphadenopathy. CARDIOVASCULAR: Regular rate and rhythm without murmurs, gallops, or rubs. RESPIRATORY: Clear to auscultation. Breath sounds equal bilaterally. No wheezes , rales, or rhonchi. GASTROINTESTINAL: Abdomen soft, non-tender, nondistended. MUSCULOSKELETAL: Extremities without clubbing, cyanosis, or edema. NEUROLOGICAL: Awake and alert, no focal deficits. Medications and IVs Current Medications Medications (Trade) Dose Ordered Sig/Pilar Route Start Time Stop Time Status Last Admin (Heparin Inj) 5,000 units UNSCH PRN IV 12/14/16 23:45 Heparin Sodium (Porcine) 2500 units 2,500 units UNSCH PRN IV 12/14/16 23:45 (Heparin-D5W Inj) 250 ml @ 0 mls/hr TITRATE IV 12/14/16 17:45 (Aspirin) 325 mg DAILY PO 12/15/16 09:00 (Coreg) 3.125 mg BID PO 12/14/16 21:00 (Neurontin) 800 mg TID PO 12/15/16 09:00 (Avapro) 75 mg DAILY PO 12/15/16 09:00 (Pravachol) 40 mg DAILY PO 12/15/16 09:00 (NS Flush) 2 ml BID IV FLUSH 12/14/16 21:00 12/14/16 21:19 (NS Flush) 2 ml UNSCH PRN IV FLUSH 12/14/16 18:15 (Tylenol) 500 mg Q4H PRN PO 12/14/16 18:15 ([place] 7.5-325 Mg) 1 tab Q4H PRN PO 12/14/16 18:15 (Morphine Inj) 2 mg Q5M PRN IV 12/14/16 18:15 (Mag-Al Plus Susp Liq) 30 ml QID PO 12/14/16 21:00 Temazepam 15 mg 15 mg HS PRN PO 12/14/16 21:00 (Nitroglycerin-Dextrose Inj) 250 ml @ 0 mls/hr TITRATE IV 12/14/16 21:30 12/14/16 21:38 A/P Assessment and Plan (1) Unstable angina ICD Code: I20.0 Status: Acute (2) Hypertension ICD Code: I10 Status: Acute (3) Shingles rash ICD Code: B02.9 Status: Acute (4) Atrial fibrillation ICD Code: I48.91 Status: Acute Unstable angina: -Chest x-ray noted and reviewed by me with No acute cardiopulmonary disease -Continue ACS rule out per protocol with serial cardiac enzyme and EKGs, check 2 -D echo. -Cardiology following for possible Cardiac Cath versus Stress test. -Secondary to positive guaiac, on hold heparin drip -Continue with Nitro drip and resume beta michael/statin Shingle flareup continue Acyclovir COPD No exacerbation, resume outpatient medication and DuoNeb when necessary Hyperlipidemia Check lipid profile, resume statin Obesity strongly recommended diet and exercise, weight reduction warranted. DVT prophylaxis: Bilateral SCDs, Heparin on hold Code Status Full code Discussed Condition With Patient and nurse Miss Mercedes. Discharge Planning Awaiting final by rating specialist to discharge home Rocky Johnson MD Dec 15, 2016 09:32
--- NOTE | 2016-12-15 11:14 | MB ---
cc: BRIEN NUNN DATE OF CONSULTATION: 12/15/2016 REASON FOR CONSULTATION Evaluation of syncope and chest pain. HISTORY OF PRESENT ILLNESS Gilles Magallanes is a 56-year-old man followed by my colleague Dr. Parmar. The patient has a history of a severe cardiomyopathy. He had an acute inferior myocardial infarction September 01, 2006 and had a 3.0 x 12 mm Multi-Link stent placed in the distal right coronary artery. He has had four cardiac cath catheterizations since then performed for chest pain syndromes, this includes December 10, 2006, March 25, 2007, February 18, 2009 and April 18, 2011. His last nuclear stress test in October of 2015 showed a fixed inferolateral defect consistent with his previous inferior VT. The patient seems little lethargic getting his history. I took his history in the presence of his and got the impression that maybe he was just tired. The patient said he had not had any symptoms recently but the corrected him and mentioned that he has been having some intermittent chest discomfort for the past couple of weeks. Yesterday apparently he played golf, he had a little bit of a dizzy spell on the 16th hole, later while cleaning the golf cart he got lightheaded, lost his balance and then later he found himself on the ground and does not know how he got there. He has been having some ongoing discomfort with radiation to his arm, yesterday it was radiating some to the neck. The discomfort has improved according to him. His chart says he has had a previous history of stroke but when I asked the patient he denies having a previous stroke. His last caths have showed about 20% in-stent restenosis only in the right coronary artery, no high-grade stenoses but very poor ejection fraction. He has been on long-term management with 325 mg Aspirin, Avapro 75 mg daily, carvedilol 6.25 mg b.i.d., simvastatin 20 mg at bedtime. PAST MEDICAL HISTORY 1. He has got a Medtronic single-lead defibrillator placed July 13, 2011. 2. Benign prostatic hypertrophy. 3. Coronary artery disease. 4. Cardiomyopathy. 5. Erectile dysfunction. 6. Hypertension. 7. Morbid obesity. 8. Chronic dyspnea. PAST SURGICAL HISTORY 1. AICD. 2. Back surgery. 3. Right knee replacement. 4. Hemorrhoidectomy. SOCIAL HISTORY He is a former smoker, no longer smokes. PHYSICAL EXAMINATION GENERAL: Reveals a morbidly obese, pleasant, white male in no acute distress. VITAL SIGNS: His blood pressure is 125/64, pulse is 62. HEENT: Unremarkable. NECK: Negative for JVD but difficult to assess due to the obesity. There are no bruits. CHEST: Chest is clear to auscultation. There is a defibrillator in the left infraclavicular region. CARDIAC: Shows soft S1, S2. Regular rate and rhythm. I cannot appreciate murmurs or gallops. ABDOMEN: Abdomen is morbidly obese, soft, nontender. EXTREMITIES: Reveal no clubbing, cyanosis or edema. Pulses are intact. His EKG shows sinus rhythm with evidence for an old inferior infarct with ST-T wave changes that are chronic in the inferior leads, this is similar to prior tracings he has had. IMAGING His chest x-ray report shows no acute disease. LABORATORY WORK His hematocrit is 39, platelet count 228,000, white count 9400, creatinine 0.94, troponins x3 are normal, LDL cholesterol is 43, HDL cholesterol 25. IMPRESSION A 56-year-old male with a severe cardiomyopathy out of proportion probably to his coronary disease and coronary disease as well. He comes in with syncope and chest pain. I will have his defibrillator interrogated to see if he has had any ventricular arrhythmias to account for the syncope. He does not have any evidence for a myocardial infarction. He does have some prolonged ongoing chest discomfort since yesterday. Apparently he has been cathed in the past for ongoing chest discomfort and the last four caths have been negative but this last one has not been since 2010. I told him I would like to hold off on emergency cath today since I am covering the emergency room for emergencies and there is no sign of infarction. If the chest pain goes away we probably will get a nuclear stress test, if it is ongoing I will probably plan to proceed with a cardiac cath possibly as early as tomorrow, if he becomes unstable we may try do that today. Further therapy be determined. MD MARLYS Delacruz/LILA /8:32 AM /10:49 AM
[2016-12-15] MEDS: CARVEDILOL 3.125 MG TAB PO SCH ×2 (11:47→21:16)
[2016-12-15] MEDS: ASPIRIN 325 MG TAB PO SCH (11:47)
[2016-12-15] MEDS: PRAVASTATIN SOD 40 MG TAB PO SCH (11:48)
[2016-12-15] MEDS: ALUMINUM/MAGNESIUM/SIMETH 30 ML CUP PO SCH ×4 (11:48→21:00)
[2016-12-15] MEDS: LOSARTAN 25 MG TAB PO SCH (11:49)
[2016-12-15] MEDS: NITROGLYCERIN 2% OINT 1 GM PACKET TOPICAL SCH ×3 (12:58→23:38)
--- NOTE | 2016-12-15 13:36 | EKG ---
Date Performed: 12/14/2016 Time Performed: 22:22:55 PTAGE: 56 years EKG: Sinus rhythm LATERAL MYOCARDIAL INFARCTION INFERIOR MYOCARDIAL INFARCTION ABNORMAL ECG Compared to prior tracing no significant change PREVIOUS TRACING : 12/14/2016 15.21 DOCTOR: Jean Pineda Interpretating Date/Time 12/15/2016 13:33:41
--- NOTE | 2016-12-15 13:36 | EKG ---
Date Performed: 12/14/2016 Time Performed: 15:21:49 PTAGE: 56 years EKG: Sinus rhythm INFERIOR MYOCARDIAL INFARCTION ABNORMAL ECG Compared to prior tracing no significant change PREVIOUS TRACING : 12/14/2016 14.48 DOCTOR: Jean Pineda Interpretating Date/Time 12/15/2016 13:33:33
--- NOTE | 2016-12-15 13:36 | EKG ---
Date Performed: 12/15/2016 Time Performed: 03:51:38 PTAGE: 56 years EKG: Sinus rhythm INFERIOR MYOCARDIAL INFARCTION ABNORMAL ECG Compared to prior tracing no significant change PREVIOUS TRACING : 12/14/2016 22.22 DOCTOR: Jean Pineda Interpretating Date/Time 12/15/2016 13:33:50
--- NOTE | 2016-12-15 16:05 | EC ---
Study Study Date:12/15/2016 STUDY CONCLUSIONS SUMMARY LEFT VENTRICLE: The cavity size was normal. Wall thickness was normal. Systolic function was severely reduced. The estimated ejection fraction was 25%, in the range of 20% to 25%. Diffuse hypokinesis. Akinesis and scarring of the inferoposterior myocardium. If LV function is below 40, please consider prescribing an ACEI or ARB or document rationale for non-use. PROCEDURE DATA STUDY STATUS: Elective. Procedure: Transthoracic echocardiography. Image quality was good. Scanning was performed from the parasternal, apical, and subcostal acoustic windows. Study completion: The patient tolerated the procedure well. Transthoracic echocardiography. M-mode, complete 2D, complete spectral Doppler, and color Doppler. Patient status: Inpatient. CARDIAC ANATOMY LEFT VENTRICLE: The cavity size was normal. Wall thickness was normal. Systolic function was severely reduced. The estimated ejection fraction was 25%, in the range of 20% to 25%. Diffuse hypokinesis. Regional wall motion abnormalities: Akinesis and scarring of the inferoposterior myocardium. AORTIC VALVE: Trileaflet; normal thickness leaflets. Doppler: Transvalvular velocity was within the normal range. There was no stenosis. No regurgitation. Peak gradient: 12mm Hg (S). AORTA: Aortic root: The aortic root was normal in size. MITRAL VALVE: Structurally normal valve. Doppler: Transvalvular velocity was within the normal range. There was no evidence for stenosis. No regurgitation. Peak gradient: 2mm Hg (D). LEFT ATRIUM: The atrium was normal in size. RIGHT VENTRICLE: The cavity size was normal. Wall thickness was normal. Pacer wire or catheter noted in right ventricle. PULMONIC VALVE: Doppler: Transvalvular velocity was within the normal range. There was no evidence for stenosis. No regurgitation. TRICUSPID VALVE: Structurally normal valve. Doppler: Transvalvular velocity was within the normal range. Trace regurgitation. PULMONARY ARTERY: The main pulmonary artery was normal-sized. Systolic pressure was within the normal range. RIGHT ATRIUM: The atrium was normal in size. Pacer wire or catheter noted in right atrium. PERICARDIUM: There was no pericardial effusion. SYSTEMIC VEINS: Inferior vena cava: The vessel was normal in size. BASIC MEASUREMENTS ADULT Normal Left ventricle LV internal dimension, ED, chordal level, *58 mm 43-52 PLAX LV internal dimension, ES, chordal level, *48.5 mm 23-38 PLAX Fractional shortening, chordal level, PLAX *16 % >29 LV posterior wall thickness, ED 8.65 mm IVS/LVPW ratio, ED *1.61 <1.3 Ventricular septum Septal thickness, ED 13.9 mm Aortic valve Leaflet separation 23 mm 15-26 Left atrium Anterior-posterior dimension 39 mm Right ventricle RV internal dimension, ED, PLAX 21.4 mm 19-38 BASIC MEASUREMENTS ADULT Normal Aortic valve Leaflet separation 23 mm 15-26 Aorta Root diameter, ED 34 mm 20-37 DOPPLER MEASUREMENTS ADULT Normal Main pulmonary artery Pressure, S 15 mm Hg =30 Aortic valve Peak velocity, S 174 cm/s Peak gradient, S 12 mm Hg Mitral valve Peak E-wave velocity 76.5 cm/s Peak A-wave velocity 87.4 cm/s Peak gradient, D 2 mm Hg Peak E/A ratio 0.9 Tricuspid valve Regurgitant peak velocity 155 cm/s Peak RV-RA gradient, S 10 mm Hg Maximal regurgitant velocity 155 cm/s Systemic veins Estimated CVP 5 mm Hg Right ventricle RV pressure, S 15 mm Hg <30 LEGEND: Mean values are shown as u=mean value. Asterisk (*) epperson values outside specified normal range. Prepared and signed by Willy Wang [id number]
[2016-12-16] VITALS: BP 120/61; PULSE 75; RESP 18; TEMP 98; O2SAT 94
[2016-12-16 04:00] VITALS: BP 95/55; PULSE 60; RESP 20; TEMP 97.9; O2SAT 97
[2016-12-16] MEDS: ACYCLOVIR 800 MG TAB PO SCH ×3 (06:00→12:47)
[2016-12-16] MEDS: NITROGLYCERIN 2% OINT 1 GM PACKET TOPICAL SCH ×2 (06:00→12:00)
[2016-12-16 07:45] VITALS: BP 100/55; PULSE 63; RESP 18; TEMP 97.7; O2SAT 95
[2016-12-16 08:00] VITALS: PULSE 59
--- NOTE | 2016-12-16 08:52 | HHI.PR ---
Subjective Remarks This is a pleasant 56 y/o Male with Atrial Fibrillation, Hypertension, prior [place] and pacemaker placement, who came to ER with Chest pain, rated 8/10 in intensity associated with radiation to left arm as well as diaphoresis and shortness of breath. Patient also report an episode of presyncope. Patient reports his first heart attack in 2006 for which he underwent left heart catheterization and stent placement. He had a normal stress test performed 2 years ago. hines also Hyperlipidemia, CVA x 2 2006, [place] x 2. Followed by patient transition specialist doctor John, recommended for Possible Stress test versus Cardiac cath depend of interrogated Pacemaker at this time continue with Oppressive sensation but his Cardiac Enzymes negative. continue present care. 12/16: Patient stable seen by patient transition specialist doctor Felipe early today and recommended for discharge Home after stress test negative. No nausea, vomit or diarrhea. Objective Vital Signs Date Time Temp Pulse Resp B/P Pulse Ox O2 Delivery O2 Flow Rate FiO2 12/16/16 04:00 97.9 60 20 95/55 97 12/16/16 00:00 98.0 75 18 120/61 94 12/15/16 20:00 79 12/15/16 20:00 97.7 78 18 141/82 96 12/15/16 17:45 98.6 80 18 149/91 96 12/15/16 15:25 98.0 83 14 132/66 94 Nasal Cannula 2 12/15/16 15:22 88 14 132/66 96 Nasal Cannula 2 12/15/16 11:30 82 19 125/66 96 Nasal Cannula 2 I/O 12/15/16 12/15/16 12/15/16 12/16/16 12/16/16 12/16/16 07:00 15:00 23:00 07:00 15:00 23:00 Intake Total 240 ml 0 ml Output Total 1150 ml Balance 240 ml -1150 ml Intake Oral 240 ml 0 ml Output Urine Total 1150 ml # Voids 0 # Bowel Movements 0 0 Result Diagram: 12/14/16 1452 12/14/16 1452 Imaging Last Impressions Chest X-Ray 12/14/16 1451 Signed Impressions: Service Date/Time: Wednesday, December 14, 2016 15:38 - CONCLUSION: No acute cardiopulmonary disease. Harrison Herbert MD Procedures NO procedures performed. Other Results Laboratory Tests Test 412/14/16 12/15/16 14:52 21:40 04:10 White Blood Count 9.4 TH/MM3 Red Blood Count 4.29 MIL/MM3 Hemoglobin 13.6 GM/DL Hematocrit 39.0 % Mean Corpuscular Volume 90.9 FL Mean Corpuscular Hemoglobin 31.7 PG Mean Corpuscular Hemoglobin 34.9 % Concent Red Cell Distribution Width 14.5 % Platelet Count 228 TH/MM3 Mean Platelet Volume 8.2 FL Neutrophils (%) (Auto) 59.1 % Lymphocytes (%) (Auto) 30.4 % Monocytes (%) (Auto) 8.1 % Eosinophils (%) (Auto) 1.6 % Basophils (%) (Auto) 0.8 % Neutrophils # (Auto) 5.6 TH/MM3 Lymphocytes # (Auto) 2.9 TH/MM3 Monocytes # (Auto) 0.8 TH/MM3 Eosinophils # (Auto) 0.1 TH/MM3 Basophils # (Auto) 0.1 TH/MM3 CBC Comment DIFF FINAL Differential Comment Prothrombin Time 12.0 SEC Prothromb Time International 1.1 RATIO Ratio Activated Partial 27.3 SEC Thromboplast Time Sodium Level 140 MEQ/L Potassium Level 3.7 MEQ/L Chloride Level 108 MEQ/L Carbon Dioxide Level 23.0 MEQ/L Anion Gap 9 MEQ/L Blood Urea Nitrogen 13 MG/DL Creatinine 0.94 MG/DL Estimat Glomerular Filtration 83 ML/MIN Rate Random Glucose 95 MG/DL Calcium Level 8.7 MG/DL Total Bilirubin 0.5 MG/DL Aspartate Amino Transf 27 U/L (AST/SGOT) Alanine Aminotransferase 42 U/L (ALT/SGPT) Alkaline Phosphatase 69 U/L Creatine Kinase MB 6.3 NG/ML B-Type Natriuretic Peptide 43 PG/ML Total Protein 7.1 GM/DL Albumin 3.7 GM/DL Magnesium Level 2.1 MG/DL Total Creatine Kinase 163 U/L Troponin I LESS THAN 0.02 NG/ML Triglycerides Level 172 MG/DL Cholesterol Level 102 MG/DL LDL Cholesterol 43 MG/DL HDL Cholesterol 24.7 MG/DL Cholesterol/HDL Ratio 4.12 RATIO Objective Remarks GENERAL: Obesity, in no apparent distress. SKIN: Cool and dry. HEAD: Atraumatic. Normocephalic. No temporal or scalp tenderness. EYES: Pupils equal round and reactive. Extraocular motions intact. ENT: Nose without bleeding. NECK: Trachea midline. No JVD or lymphadenopathy. CARDIOVASCULAR: Regular rate and rhythm without murmurs, gallops, or rubs. RESPIRATORY: Clear to auscultation. Breath sounds equal bilaterally. No wheezes , rales, or rhonchi. GASTROINTESTINAL: Abdomen soft, non-tender, nondistended. MUSCULOSKELETAL: Extremities without clubbing, cyanosis, or edema. NEUROLOGICAL: Awake and alert, no focal deficits. Medications and IVs Current Medications Medications (Trade) Dose Ordered Sig/Pilar Route Start Time Stop Time Status Last Admin (Heparin Inj) 5,000 units UNSCH PRN IV 12/14/16 23:45 Heparin Sodium (Porcine) 2500 units 2,500 units UNSCH PRN IV 12/14/16 23:45 (Heparin-D5W Inj) 250 ml @ 0 mls/hr TITRATE IV 12/14/16 17:45 (Aspirin) 325 mg DAILY PO 12/15/16 09:00 12/15/16 11:47 (Coreg) 3.125 mg BID PO 12/14/16 21:00 12/15/16 21:16 (Neurontin) 800 mg TID PO 12/15/16 09:00 (Pravachol) 40 mg DAILY PO 12/15/16 09:00 12/15/16 11:48 (NS Flush) 2 ml BID IV FLUSH 12/14/16 21:00 12/15/16 21:16 (NS Flush) 2 ml UNSCH PRN IV FLUSH 12/14/16 18:15 (Tylenol) 500 mg Q4H PRN PO 12/14/16 18:15 ([place] 7.5-325 Mg) 1 tab Q4H PRN PO 12/14/16 18:15 12/15/16 21:17 (Morphine Inj) 2 mg Q5M PRN IV 12/14/16 18:15 (Mag-Al Plus Susp Liq) 30 ml QID PO 12/14/16 21:00 12/15/16 17:30 Temazepam 15 mg 15 mg HS PRN PO 12/14/16 21:00 (Nitroglycerin-Dextrose Inj) 250 ml @ 0 mls/hr TITRATE IV 12/14/16 21:30 12/14/16 21:38 (Cozaar) 25 mg DAILY PO 12/15/16 11:00 12/15/16 11:49 (Nitroglycerin 2% Oint) 1 inch Q6HR TOPICAL 12/15/16 12:00 12/16/16 06:00 A/P Assessment and Plan (1) Unstable angina ICD Code: I20.0 Status: Acute (2) Hypertension ICD Code: I10 Status: Acute (3) Shingles rash ICD Code: B02.9 Status: Acute (4) Atrial fibrillation ICD Code: I48.91 Status: Acute Unstable angina: -Chest x-ray noted and reviewed by me with No acute cardiopulmonary disease -Continue ACS rule out per protocol with serial cardiac enzyme and EKGs, check 2 -D echo. -Cardiology following status post Stress test negative recommended for discharge. -Continue with Nitro drip and resume beta michael/statin Shingle flareup continue Acyclovir, patient asked for new script for Acyclovir. COPD No exacerbation, resume outpatient medication and DuoNeb when necessary Hyperlipidemia resume statin Obesity strongly recommended diet and exercise, weight reduction warranted. DVT prophylaxis: Bilateral SCDs, Heparin on hold Code Status Full code Discussed Condition With Patient and nurse Miss Bruner Discharge Planning Discharge Home now. Rocky Johnson MD Dec 16, 2016 08:52
[2016-12-16] MEDS: GABAPENTIN 400 MG CAP PO SCH ×2 (09:00→12:47)
[2016-12-16] MEDS: SODIUM CHLORIDE 0.9% FLUSH 10 ML FLUSH IV FLUSH SCH (09:00)
[2016-12-16] MEDS: ALUMINUM/MAGNESIUM/SIMETH 30 ML CUP PO SCH ×2 (09:00→12:47)
--- NOTE | 2016-12-16 09:09 | PD.CARD.PN ---
Subjective Subjective Remarks Chest discomfort resolved yesterday. Feels back to normal. Objective Medications Current Medications Medications (Trade) Dose Ordered Sig/Pilar Route Start Time Stop Time Status Last Admin (Heparin Inj) 5,000 units UNSCH PRN IV 12/14/16 23:45 Heparin Sodium (Porcine) 2500 units 2,500 units UNSCH PRN IV 12/14/16 23:45 (Heparin-D5W Inj) 250 ml @ 0 mls/hr TITRATE IV 12/14/16 17:45 (Aspirin) 325 mg DAILY PO 12/15/16 09:00 12/15/16 11:47 (Coreg) 3.125 mg BID PO 12/14/16 21:00 12/15/16 21:16 (Neurontin) 800 mg TID PO 12/15/16 09:00 (Pravachol) 40 mg DAILY PO 12/15/16 09:00 12/15/16 11:48 (NS Flush) 2 ml BID IV FLUSH 12/14/16 21:00 12/15/16 21:16 (NS Flush) 2 ml UNSCH PRN IV FLUSH 12/14/16 18:15 (Tylenol) 500 mg Q4H PRN PO 12/14/16 18:15 ([place] 7.5-325 Mg) 1 tab Q4H PRN PO 12/14/16 18:15 12/15/16 21:17 (Morphine Inj) 2 mg Q5M PRN IV 12/14/16 18:15 (Mag-Al Plus Susp Liq) 30 ml QID PO 12/14/16 21:00 12/15/16 17:30 Temazepam 15 mg 15 mg HS PRN PO 12/14/16 21:00 (Nitroglycerin-Dextrose Inj) 250 ml @ 0 mls/hr TITRATE IV 12/14/16 21:30 12/14/16 21:38 (Cozaar) 25 mg DAILY PO 12/15/16 11:00 12/15/16 11:49 (Nitroglycerin 2% Oint) 1 inch Q6HR TOPICAL 12/15/16 12:00 12/16/16 06:00 Vital Signs / I&O Vital Signs Date Time Temp Pulse Resp B/P Pulse Ox O2 Delivery O2 Flow Rate FiO2 12/16/16 07:45 97.7 63 18 100/55 95 12/16/16 04:00 97.9 60 20 95/55 97 12/16/16 00:00 98.0 75 18 120/61 94 12/15/16 20:00 79 12/15/16 20:00 97.7 78 18 141/82 96 12/15/16 17:45 98.6 80 18 149/91 96 12/15/16 15:25 98.0 83 14 132/66 94 Nasal Cannula 2 12/15/16 15:22 88 14 132/66 96 Nasal Cannula 2 12/15/16 11:30 82 19 125/66 96 Nasal Cannula 2 I/O 12/15/16 12/15/16 12/15/16 12/16/16 12/16/16 12/16/16 07:00 15:00 23:00 07:00 15:00 23:00 Intake Total 240 ml 0 ml Output Total 1150 ml Balance 240 ml -1150 ml Intake Oral 240 ml 0 ml Output Urine Total 1150 ml # Voids 0 # Bowel Movements 0 0 Physical Exam GENERAL: Well developed, morbidly obese. No acute distress. HEENT: JVD not easily assessed due to obesity. CHEST: Lungs clear to auscultation bilaterally. Unlabored respiratory effort. CARDIAC: Regular rate and rhythm ABDOMEN: Soft, nontender, no hepatomegaly. Bowel sounds present. EXTREMITIES: No clubbing, cyanosis, or edema. Laboratory Laboratory Tests Test 12/14/16 12/14/16 12/15/16 14:52 21:40 04:10 White Blood Count 9.4 TH/MM3 Red Blood Count 4.29 MIL/MM3 Hemoglobin 13.6 GM/DL Hematocrit 39.0 % Mean Corpuscular Volume 90.9 FL Mean Corpuscular Hemoglobin 31.7 PG Mean Corpuscular Hemoglobin 34.9 % Concent Red Cell Distribution Width 14.5 % Platelet Count 228 TH/MM3 Mean Platelet Volume 8.2 FL Neutrophils (%) (Auto) 59.1 % Lymphocytes (%) (Auto) 30.4 % Monocytes (%) (Auto) 8.1 % Eosinophils (%) (Auto) 1.6 % Basophils (%) (Auto) 0.8 % Neutrophils # (Auto) 5.6 TH/MM3 Lymphocytes # (Auto) 2.9 TH/MM3 Monocytes # (Auto) 0.8 TH/MM3 Eosinophils # (Auto) 0.1 TH/MM3 Basophils # (Auto) 0.1 TH/MM3 CBC Comment DIFF FINAL Differential Comment Prothrombin Time 12.0 SEC Prothromb Time International 1.1 RATIO Ratio Activated Partial 27.3 SEC Thromboplast Time Sodium Level 140 MEQ/L Potassium Level 3.7 MEQ/L Chloride Level 108 MEQ/L Carbon Dioxide Level 23.0 MEQ/L Anion Gap 9 MEQ/L Blood Urea Nitrogen 13 MG/DL Creatinine 0.94 MG/DL Estimat Glomerular Filtration 83 ML/MIN Rate Random Glucose 95 MG/DL Calcium Level 8.7 MG/DL Total Bilirubin 0.5 MG/DL Aspartate Amino Transf 27 U/L (AST/SGOT) Alanine Aminotransferase 42 U/L (ALT/SGPT) Alkaline Phosphatase 69 U/L Creatine Kinase MB 6.3 NG/ML B-Type Natriuretic Peptide 43 PG/ML Total Protein 7.1 GM/DL Albumin 3.7 GM/DL Magnesium Level 2.1 MG/DL Total Creatine Kinase 163 U/L Troponin I LESS THAN 0.02 NG/ML Triglycerides Level 172 MG/DL Cholesterol Level 102 MG/DL LDL Cholesterol 43 MG/DL HDL Cholesterol 24.7 MG/DL Cholesterol/HDL Ratio 4.12 RATIO Last 48 hours Impressions Chest X-Ray 12/14/16 1451 Signed Impressions: Service Date/Time: Wednesday, December 14, 2016 15:38 - CONCLUSION: No acute cardiopulmonary disease. Harrison Herbert MD Imaging Last 48 hours Impressions Chest X-Ray 12/14/16 1451 Signed Impressions: Service Date/Time: Wednesday, December 14, 2016 15:38 - CONCLUSION: No acute cardiopulmonary disease. Harrison Herbert MD Assessment and Plan Problem List: (1) NYHA class 2 and LUZMA/AHA stage C chronic systolic congestive heart failure Assessment and Plan: Compensated. (2) Ischemic cardiomyopathy Assessment and Plan: Scarred akinetic inf-post wall (3) AICD (automatic cardioverter/defibrillator) present Assessment and Plan: Interoogation OK - no arrythmia to explain syncope/ presyncope (4) History of heart artery stent Assessment and Plan: August 2006. 3 negative cath's since then (02/2007, 01/2009 , 03/2011) (5) Angina at rest Assessment and Plan: No troponin rise. Sx's resolved. Assessment and Plan Long discussion with patient. 3 options: DC with out W/U, Elsa Spect, or cardiac cath. Risks/ benefits dioscussed. Chose SPECT first Willy Wang MD Dec 16, 2016 09:09
[2016-12-16] MEDS: ASPIRIN 325 MG TAB PO SCH (09:24)
[2016-12-16] MEDS: LOSARTAN 25 MG TAB PO SCH (09:24)
[2016-12-16] MEDS: PRAVASTATIN SOD 40 MG TAB PO SCH (09:25)
[2016-12-16] MEDS ORDERED: REGADENOSON INJ 0.4 MG/5 ML SYR ONE (10:55)
--- NOTE | 2016-12-16 12:15 | RADRPT ---
EXAM DATE/TIME: 12/16/2016 10:34 [facility] COMPARISON: No previous studies available for comparison. INDICATIONS : Syncope and substernal chest pain without radiation. Angina. Coronary artery disease. DOSE: 30 mCi Tc99m Myoview at stress. 10 mCi Tc99m Myoview at rest. 0.4 mg Lexiscan STRESS SYMPTOMS: Chest pressure and dyspnea. EJECTION FRACTION: 33% MEDICAL HISTORY : Carotid stenosis. Hypertension. Stroke. Cardiomyopathy. SURGICAL HISTORY : Defibrillator. Back surgery and right knee replacement. ENCOUNTER: Initial ACUITY: 3 days PAIN SCALE: 4/10 LOCATION: Substernal chest TECHNIQUE: The patient underwent pharmacologic stress with infusion of prescribed dose. Continuous ECG tracing was monitored during stress. Gated SPECT imaging was performed after stress and conventional SPECT i maging was performed at rest. The examination was performed on a SPECT/CT scanner, both attenuation and non-corrected datasets were reviewed. FINDINGS: DISTRIBUTION: The maximum perfused segment at stress is in the septal wall. PERFUSION STUDY: There is a large fixed defect on the stress and rest images involving the inferior wall. This extends into the inferior lateral wall and the apex. No areas of ischemia are seen. GATED STUDY: There is global hypokinesis with a reduced ejection fraction. CONCLUSION: 1. Large fixed defect involving the inferior wall. 2. No areas of ischemia are seen. 3. Global hypokinesis with a reduced ejection fraction. RISK CATEGORY: Intermediate (1-3% Annual Mortality Rate) Eddy Hopkins MD on December 16, 2016 at 12:10 Board Certified Radiologist. This report was verified electronically.
[2016-12-16 12:20] VITALS: BP 156/63; PULSE 78; RESP 18; TEMP 97.7; O2SAT 96
[2016-12-16] MEDS: CARVEDILOL 3.125 MG TAB PO SCH (12:46)
--- NOTE | 2016-12-16 13:32 | EKG ---
Date Performed: 12/14/2016 Time Performed: 14:48:54 PTAGE: 56 years EKG: Sinus rhythm INFERIOR MYOCARDIAL INFARCTION Compared to prior tracing no significant change ABNORMAL ECG PREVIOUS TRACING : 02/18/2016 21.51 DOCTOR: Jean Pineda Interpretating Date/Time 12/16/2016 13:30:42
--- NOTE | 2016-12-16 15:10 | PD.CARD.PN ---
Assessment and Plan Problem List: (1) NYHA class 2 and LUZMA/AHA stage C chronic systolic congestive heart failure (2) Ischemic cardiomyopathy (3) AICD (automatic cardioverter/defibrillator) present (4) History of heart artery stent (5) Angina at rest Assessment and Plan 1) Asked to see patient for Dr. Wang as stress test showing no ischemia, Dr. Wang ok for patient discharge 2) Cardiovascularly stable for discharge 3) Follow up with Dr. Parmar in 2 weeks 4) Per Dr. Wang, will consider starting Entresto outpatient Franky Lopez DO Dec 16, 2016 15:10
[2016-12-16] MEDS ORDERED: GABA800T PO (15:19)
--- NOTE | 2016-12-16 15:25 | HHI.DS ---
Discharge Summary Admission Date Dec 14, 2016 at 17:37 Discharge Date: Dec 16, 2016 Admitting Diagnosis unstable angina (1) Unstable angina ICD Code: I20.0 Diagnosis: Principal (2) Hypertension ICD Code: I10 Diagnosis: Secondary (3) Shingles rash ICD Code: B02.9 Diagnosis: Secondary (4) Atrial fibrillation ICD Code: I48.91 Diagnosis: Secondary Procedures Stress test Brief History - From Admission 56-year-old man with a history of atrial fibrillation, hypertension, prior MIs and pacemaker placement drove himself to the ED for evaluation of chest pressure this 2 PM rated 8/10 in intensity associated with radiation to left arm as well as diaphoresis and shortness of breath. Patient also report an episode of presyncope. Patient reports his first heart attack in 2006 for which he underwent left heart catheterization and stent placement. He had a normal stress test performed 2 years ago. Although patient denies any GI bleed , fecal occult blood test was positive in ED. CBC/BMP: 12/14/16 1452 12/14/16 1452 Significant Findings Laboratory Tests Test 12/14/16 12/14/16 12/15/16 14:52 21:40 04:10 Red Blood Count 4.29 MIL/MM3 (4.50-5.90) Monocytes (%) (Auto) 8.1 % (0.0-8.0) Prothrombin Time 12.0 SEC (9.8-11.6) Chloride Level 108 MEQ/L (98-107) Estimat Glomerular Filtration 83 ML/MIN (>89) Rate Creatine Kinase MB 6.3 NG/ML (0.5-3.6) Troponin I LESS THAN 0.02 LESS THAN 0.02 LESS THAN 0.02 NG/ML NG/ML NG/ML (0.02-0.05) (0.02-0.05) (0.02-0.05) Triglycerides Level 172 MG/DL (42-150) Cholesterol Level 102 MG/DL (120-200) HDL Cholesterol 24.7 MG/DL (40.0-60.0) Imaging Last Impressions Myocardial Perfusion Scan Nuc Med 12/16/16 0000 Signed Impressions: Service Date/Time: Friday, December 16, 2016 10:34 - CONCLUSION: 1. Large fixed defect involving the inferior wall. 2. No areas of ischemia are seen. 3. Global hypokinesis with a reduced ejection fraction. RISK CATEGORY: Intermediate (1-3%% Annual Mortality Rate) Eddy Hopkins MD Chest X-Ray 12/14/16 1451 Signed Impressions: Service Date/Time: Wednesday, December 14, 2016 15:38 - CONCLUSION: No acute cardiopulmonary disease. Harrison Herbert MD PE at Discharge GENERAL: Obesity, in no apparent distress. SKIN: Cool and dry. HEAD: Atraumatic. Normocephalic. No temporal or scalp tenderness. EYES: Pupils equal round and reactive. Extraocular motions intact. ENT: Nose without bleeding. NECK: Trachea midline. No JVD or lymphadenopathy. CARDIOVASCULAR: Regular rate and rhythm without murmurs, gallops, or rubs. RESPIRATORY: Clear to auscultation. Breath sounds equal bilaterally. No wheezes , rales, or rhonchi. GASTROINTESTINAL: Abdomen soft, non-tender, nondistended. MUSCULOSKELETAL: Extremities without clubbing, cyanosis, or edema. NEUROLOGICAL: Awake and alert, no focal deficits. Hospital Course This is a pleasant 56 y/o Male with Atrial Fibrillation, Hypertension, prior [place] and pacemaker placement, who came to ER with Chest pain, rated 8/10 in intensity associated with radiation to left arm as well as diaphoresis and shortness of breath. Patient also report an episode of presyncope. Patient reports his first heart attack in 2006 for which he underwent left heart catheterization and stent placement. He had a normal stress test performed 2 years ago. hines also Hyperlipidemia, CVA x 2 2006, [place] x 2. Followed by nursing specialist doctor John, recommended for Possible Stress test versus Cardiac cath depend of interrogated Pacemaker at this time continue with Oppressive sensation but his Cardiac Enzymes negative. continue present care. 12/16: Patient stable seen by nursing specialist doctor Felipe early today and recommended for discharge Home after stress test negative. No nausea, vomit or diarrhea. Assessment and Plan (1) Unstable angina ICD Code: I20.0 Status: Acute (2) Hypertension ICD Code: I10 Status: Acute (3) Shingles rash ICD Code: B02.9 Status: Acute (4) Atrial fibrillation ICD Code: I48.91 Status: Acute Unstable angina: -Chest x-ray noted and reviewed by me with No acute cardiopulmonary disease -Continue ACS rule out per protocol with serial cardiac enzyme and EKGs, check 2 -D echo. -Cardiology following status post Stress test negative recommended for discharge. -Continue with Nitro drip and resume beta michael/statin Shingle flareup continue Acyclovir, patient asked for new script for Acyclovir. COPD No exacerbation, resume outpatient medication and DuoNeb when necessary Hyperlipidemia resume statin Obesity strongly recommended diet and exercise, weight reduction warranted. DVT prophylaxis: Bilateral SCDs, Heparin on hold Code Status Full code Discussed Condition With Patient and nurse Miss Bruner Discharge Planning Discharge Home now. Pt Condition on Discharge: Good Discharge Disposition: Discharge Home Discharge Time: <= 30 minutes Discharge Instructions DIET: Follow Instructions for: Heart Healthy Diet Activities you can perform: Regular-No Restrictions Rocky Johnson MD Dec 16, 2016 15:25
[2016-12-16] MEDS ORDERED: ACYC800T PO ×2 (16:11→16:13)
== END 2016-12-16 16:20 | disposition home or self-care (01) ==
LOC: NEPC 14:43 → INTOOBSV 17:37 → NEDA 17:37 → NEDH 22:20 → N04A 12-15 17:12
PROVIDERS: ADMIT Internal Medicine; ATTEND Internal Medicine
DX: I25.110 Atherosclerotic heart disease of native coronary artery with unstable angina pectoris (principal); I11.0 Hypertensive heart disease with heart failure; I50.22 Chronic systolic (congestive) heart failure; B02.9 Zoster without complications; I48.91 Unspecified atrial fibrillation; I25.5 Ischemic cardiomyopathy; I25.2 Old myocardial infarction; R55 Syncope and collapse; R06.02 Shortness of breath; M79.622 Pain in left upper arm; J44.9 Chronic obstructive pulmonary disease, unspecified; E78.5 Hyperlipidemia, unspecified; R42 Dizziness and giddiness; E66.01 Morbid (severe) obesity due to excess calories; Z68.36 Body mass index [BMI] 36.0-36.9, adult; Z95.810 Presence of automatic (implantable) cardiac defibrillator; Z79.82 Long term (current) use of aspirin; Z79.01 Long term (current) use of anticoagulants; Z87.891 Personal history of nicotine dependence
CPT/HCPCS: 71010; 78452; 80053; 80061; 82550; 82552; 83735; 83880; 84484; 85025; 85610; 85730; 93005; 93017; 93306; 96360; 96361; 99291; A9502; G0378; J2785; J7040

== ENCOUNTER 2018-07-23 09:37 | Observation (INO) ==
--- NOTE | 2018-07-23 10:00 | ED ---
HPI General Chief Complaint: Chest Pain Stated Complaint: Chest Pain Time Seen by Provider: 07/23/18 09:46 History of Present Illness HPI narrative: Patient presents to the ER complaining of chest pain that started Saturday. The pain resolved on Saturday and then started at approximately 7 :00 today while patient was in bed. Pain described as being the sternal area/ left side of his chest, left arm numbness, intermittent initially now is been pretty constant, alleviated by him trying to relax, no aggravating factors. He took a baby aspirin today. He denies fever or lower extremity edema or recent travel, but reports sweating and some shortness of breath with the chest pain and episode of nausea vomiting on Saturday. Patient had a HI in August and January 2007. Dr. Parmar is his traffic law attorney and he states that he had a stress test this year. November 2016: Echo shows EF of 25%. Patient had a myocardial perfusion scan which showed a large fixed defect inferior wall, no areas of ischemia, global hypokinesis with decreased EF. Further review of his medical record shows that the patient had a cath in December 10, 2006, March 25, 2007, February 18, 2009, and April 18, 2011. Stent was placed in the distal right coronary artery and subsequent cath showed a 20% in-stent restenosis of the RCA. Patient denies active bleeding, bleeding diasthesis, major trauma, had colonoscopy approx 5 months ago (at [facility], showed pre-cancerous polyps), no previous intracranial hemorrhage, no intracranial/spinal tumor, no neuraxial anesthesia, no severe, uncontrolled HTN. Related Data Home Medications Medication Instructions Recorded Confirmed Bystolic 07/23/18 07/23/18 aspirin [Aspir-81] 81 mg PO DAILY 07/23/18 07/23/18 sacubitril-valsartan [Entresto] 24 - 26 mg PO BID 07/23/18 07/23/18 simvastatin 07/23/18 Allergies Allergy/AdvReac Type Severity Reaction Status Date / Time eptifibatide AdvReac Severe BLEEDING Verified 07/23/18 09:42 Review of Systems ROS: all other systems reviewed are negative [facility] Medical History Medical History Hypertension (Acute) Myocardial infarct (Acute) Cardiac defibrillator in place (Acute) FHx: total knee replacement (Acute) Surgical History Surgical History H/O heart artery stent (Acute) Social History Social History Substance History: No History of Abuse Smoking Status: Former smoker How Often Do You Have a Drink Containing Alcohol: 2 to 4 times a month Recent Travel in [facility] within the Last 8 Weeks: No Recent Out of Country Travel within the Last 8 Weeks: No Immunization History Tetanus Immunization: Unsure Exam Narrative Exam Narrative: GENERAL: No acute distress. SKIN: Focused skin assessment warm/dry. HEAD: Atraumatic. Normocephalic. EYES: Pupils equal and round. No scleral icterus. No injection or drainage. ENT: No nasal bleeding or discharge. Mucous membranes pink and moist. NECK: Trachea midline. No JVD. CARDIOVASCULAR: Regular rate and rhythm. No murmur appreciated. RESPIRATORY: No accessory muscle use. Clear to auscultation. Breath sounds equal bilaterally. GASTROINTESTINAL: Abdomen soft, non-tender, nondistended. Hepatic and splenic margins not palpable. MUSCULOSKELETAL: No obvious deformities. No clubbing. No cyanosis. No edema. NEUROLOGICAL: Awake and alert. No obvious cranial nerve deficits. Motor grossly within normal limits. Normal speech. PSYCHIATRIC: Appropriate mood and affect; insight and judgment normal. Rectal: Brown stool, hemoccult positive Course Initial Documented Vital Signs Temperature 97.9 F 07/23/18 09:39 Pulse Rate 67 07/23/18 09:39 Respiratory Rate 24 07/23/18 09:39 Blood Pressure 134/72 07/23/18 09:39 Pulse Oximetry 98 07/23/18 09:39 Last Documented Vital Signs Temperature 97.9 F 07/23/18 09:39 Pulse Rate 67 07/23/18 10:28 Respiratory Rate 18 07/23/18 10:27 Blood Pressure 111/52 L 07/23/18 10:27 Pulse Oximetry 97 07/23/18 10:27 Medical Decision Making [facility] Narrative Medical decision making narrative: Patient with known cardiac disease presents to the emergency department complaining of chest pain. Patient placed on cardiac nurse practitioner, continuous pulse ox, and IV access obtained. EKG, chest x-ray , labs, nitroglycerin 0.4 mg sublingual every 5 minutes x3, aspirin 243 mg p.o. ordered. 1023: CXR shows mild cardiomegaly. He reports feeling better with NTG. Patient given 2mg IV morphine. 1037: Dr Parmar consulted. States patient has cardiac disease as well as h/ o non cardiac chest pain. Advised to start heparin gtt, keep NPO as he may cath , start NTG gtt to get patient chest pain free. 1051: Hospitalist consulted for admission. 1109: Discussed case and patient admitted to hospitalist. Medical Screen Exam Complete: Yes Emergency Medical Condition: Yes Lab Data Result diagrams: 07/23/18 09:55 07/23/18 09:55 Lab Results 07/23/18 07/23/18 07/23/18 Range/Units 09:55 09:55 09:55 WBC 7.7 (4.0-11.0) th/mm3 RBC 4.51 (4.50-5.90) mil/mm3 Hgb 14.8 (13.0-17.0) gm/dL Hct 42.1 (39.0-51.0) % MCV 93.4 (80.0-100.0) fL MCH 32.7 (27.0-34.0) pg MCHC 35.1 (32.0-36.0) % RDW 14.5 (11.6-17.2) % Plt Count 171 (150-450) th/mm3 MPV 8.1 (7.0-11.0) fL Neut % (Auto) 63.1 (16.0-70.0) % Lymph % (Auto) 25.1 (9.0-44.0) % [place] % (Auto) 7.6 (0.0-8.0) % Eos % (Auto) 3.3 (0.0-4.0) % Baso % (Auto) 0.9 (0.0-2.0) % Neut # (Auto) 4.9 (1.8-7.7) th/mm3 Lymph # (Auto) 1.9 (1.0-4.8) th/mm3 [place] # (Auto) 0.6 (0.0-0.9) th/mm3 Eos # (Auto) 0.3 (0.0-0.4) th/mm3 Baso # (Auto) 0.1 (0.0-0.2) th/mm3 WBC Differential . Differential Comment Auto diff final PT (9.8-11.6) sec INR Ratio APTT (23.4-31.7) sec Sodium 139 (136-145) meq/L Potassium 4.8 (3.5-5.1) meq/L Chloride 105 (98-107) meq/L Carbon Dioxide 28.0 (21.0-32.0) meq/L Anion Gap 6 (5-15) meq/L BUN 16 (7-18) mg/dL Creatinine 0.77 (0.60-1.30) mg/dL Estimated GFR Greater than 89 (>89) mL/min Random Glucose 121 H (74-106) mg/dL Calcium 8.2 L (8.5-10.1) mg/dL Magnesium (1.5-2.5) mg/dL Total Bilirubin 0.4 (0.2-1.0) mg/dL AST 38 H (15-37) U/L ALT 52 (12-78) U/L Alkaline Phosphatase 77 (45-117) U/L Total Creatine Kinase (39-308) U/L CK-MB (CK-2) (0.5-3.6) ng/mL Troponin I Less than 0.02 L (0.02-0.05) ng/mL B-Natriuretic Peptide 65 (0-100) pg/mL Total Protein 7.7 (6.4-8.2) g/dL Albumin 3.5 (3.4-5.0) g/dL 07/23/18 07/23/18 Range/Units 09:55 09:55 WBC (4.0-11.0) th/mm3 RBC (4.50-5.90) mil/mm3 Hgb (13.0-17.0) gm/dL Hct (39.0-51.0) % MCV (80.0-100.0) fL MCH (27.0-34.0) pg MCHC (32.0-36.0) % RDW (11.6-17.2) % Plt Count (150-450) th/mm3 MPV (7.0-11.0) fL Neut % (Auto) (16.0-70.0) % Lymph % (Auto) (9.0-44.0) % [place] % (Auto) (0.0-8.0) % Eos % (Auto) (0.0-4.0) % Baso % (Auto) (0.0-2.0) % Neut # (Auto) (1.8-7.7) th/mm3 Lymph # (Auto) (1.0-4.8) th/mm3 [place] # (Auto) (0.0-0.9) th/mm3 Eos # (Auto) (0.0-0.4) th/mm3 Baso # (Auto) (0.0-0.2) th/mm3 WBC Differential Differential Comment PT 10.8 (9.8-11.6) sec INR 1.1 Ratio APTT 28.0 (23.4-31.7) sec Sodium (136-145) meq/L Potassium (3.5-5.1) meq/L Chloride (98-107) meq/L Carbon Dioxide (21.0-32.0) meq/L Anion Gap (5-15) meq/L BUN (7-18) mg/dL Creatinine (0.60-1.30) mg/dL Estimated GFR (>89) mL/min Random Glucose (74-106) mg/dL Calcium (8.5-10.1) mg/dL Magnesium 2.0 (1.5-2.5) mg/dL Total Bilirubin (0.2-1.0) mg/dL AST (15-37) U/L ALT (12-78) U/L Alkaline Phosphatase (45-117) U/L Total Creatine Kinase 160 (39-308) U/L CK-MB (CK-2) 2.3 (0.5-3.6) ng/mL Troponin I (0.02-0.05) ng/mL B-Natriuretic Peptide (0-100) pg/mL Total Protein (6.4-8.2) g/dL Albumin (3.4-5.0) g/dL Imaging Data Radiologist's impression: Chest X-Ray 07/23/18 09:54 CONCLUSION: Mild cardiomegaly. No acute findings identified. ECG Data Attestation: I personally reviewed and interpreted this ECG as follows: (Sinus rhythm, rate 72, normal axis, normal intervals, QTC 412, Q waves in leads III and aVF which was present on prior EKG, T wave inversion in aVL which is present on prior EKG,) Discharge Plan Discharge Disposition Patient Disposition: 30 Still Patient Discharge Condition Condition: Stable Discharge Details Diagnosis: Chest pain Physicians Team ED Provider: Cecy Bass Primary Care Provider: Marybeth Platt Rxs /Orders / Referrals /Forms Prescriptions: No Action aspirin [Aspir-81] 81 mg Tablet,Delayed Release (Dr/Ec) 81 mg PO DAILY RF: 0 sacubitril-valsartan [Entresto] 24-26 mg Tablet 24 - 26 mg PO BID RF: 0 Bystolic RF: 0 simvastatin RF: 0 Discharge Instructions Patient Printed Instructions: Chest Pain (ED) Discharge Interventions Interventions: Vital Signs Last Done: 07/23/18 10:27 Status ED Status: With Doctor
[2018-07-23 10:12] LABS: Baso # (Auto) 0.1 th/mm3 (0.0-0.2); Baso % (Auto) 0.9 % (0.0-2.0); Eos # (Auto) 0.3 th/mm3 (0.0-0.4); Eos % (Auto) 3.3 % (0.0-4.0); Hematocrit 42.1 % (39.0-51.0); Hemoglobin 14.8 gm/dL (13.0-17.0); Lymph # (Auto) 1.9 th/mm3 (1.0-4.8); Lymph % (Auto) 25.1 % (9.0-44.0); Mean Corpuscular HGB Conc 35.1 % (32.0-36.0); Mean Corpuscular Hemoglobin 32.7 pg (27.0-34.0); Mean Corpuscular Volume 93.4 fL (80.0-100.0); Mean Platelet Volume 8.1 fL (7.0-11.0); Mono # (Auto) 0.6 th/mm3 (0.0-0.9); Mono % (Auto) 7.6 % (0.0-8.0); Neut # (Auto) 4.9 th/mm3 (1.8-7.7); Neut % (Auto) 63.1 % (16.0-70.0); Platelet Count 171 th/mm3 (150-450); Red Blood Count 4.51 mil/mm3 (4.50-5.90); Red Cell Distribution Width 14.5 % (11.6-17.2); White Blood Count 7.7 th/mm3 (4.0-11.0)
--- NOTE | 2018-07-23 10:14 | XR ---
EXAM DATE: 07/23/2018 10:10 AM EST AGE/SEX: 57 years / Male INDICATIONS: Chest pain. CLINICAL DATA: This is the patient's initial encounter. Patient reports that signs and symptoms have been present for 1 day and indicates a pain score of 10/10. MEDICAL/SURGICAL HISTORY: Myocardial infarction. Hypertension. Hypercholesterolemia. Pac[place] r. Cardiac stents. COMPARISON: [facility], CHEST 2V PA&LAT, 06/11/2018. . FINDINGS: The heart is normal in size. There are mild chronic interstitial changes. There is a transvenous pace r in good position. The exam is similar to the previous dated 06/11/2018. CONCLUSION: Mild cardiomegaly. No acute findings identified. Electronically signed by: Florian Pinto MD 07/23/2018 10:13 AM EST
[2018-07-23 10:20] LABS: INR 1.1 Ratio; Prothrombin Time 10.8 sec (9.8-11.6)
[2018-07-23] MEDS ORDERED: Morphine Sulfate Inj 2 MG/ML Vial IV.PUSH ONE (10:27)
[2018-07-23 10:31] LABS: Alanine Aminotransferase 52 U/L (12-78); Albumin 3.5 g/dL (3.4-5.0); Anion Gap 6 meq/L (5-15); Aspartate Aminotransferase 38 U/L (15-37); Blood Urea Nitrogen 16 mg/dL (7-18); Calcium 8.2 mg/dL (8.5-10.1); Chloride 105 meq/L (98-107); Glomerular Filtration Rate Greater Than 89 mL/min (>89); Glucose,Random 121 mg/dL (74-106); Sodium 139 meq/L (136-145)
[2018-07-23 10:33] LABS: Potassium 4.8 meq/L (3.5-5.1)
[2018-07-23 10:34] LABS: Alkaline Phosphatase 77 U/L (45-117); Total Protein 7.7 g/dL (6.4-8.2)
[2018-07-23 10:47] LABS: Creatine Kinase 160 U/L (39-308)
[2018-07-23] MEDS ORDERED: Heparin 10,000 UNITS/10 ML Vial (for IV use) IV.PUSH STA (10:54)
[2018-07-23] MEDS ORDERED: Heparin Drip 25,000 UNIT/250 ML BAG IV.CONT PRN (10:54)
[2018-07-23] MEDS ORDERED: Nitroglycerin Drip Premix 50 MG/250 ML BOTTLE IV.CONT PRN (10:55)
[2018-07-23 11:03] LABS: Creatine Kinase MB 2.3 ng/mL (0.5-3.6)
[2018-07-23] MEDS ORDERED: Acetaminophen 325 MG Tablet PO PRN (11:09)
[2018-07-23] MEDS ORDERED: Bisacodyl 10 MG Supp RECTAL PRN (11:09)
[2018-07-23] MEDS ORDERED: Iohexol 350 MG/ML 100 ML Vial (for Cath Lab) IVCONTRAST ONE (11:09)
--- NOTE | 2018-07-23 11:16 | P.HP ---
History of Present Illness Service: Hospitalist Primary Care Physician: Marybeth Platt MD Chief Complaint: Chest pain History of Present Illness: Mr. Magallanes is a pleasant 57 year old male with a history of ischemic cardiomyopathy (EF 20-25%) who presents to the ED due to on going chest pain that started on Saturday07/18/2018. 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 His pain did radiate to the left shoulder and arm. He did not have any nausea or vomiting or diaphoresis. He did well over the weekend. However on Saturday he started having sharp chest pain again. Today he started having more of a pressure sensation with radiation to the left arm. He did not have any nausea vomiting or diaphoresis today. However on Saturday night he had some nausea. He does report orthopnea. No leg swelling. No cough, abdominal pain, fever or chills. No changes in bladder or bowel habits. Echo 11/2016 LVEF 20-25%, diffuse hypokinesis. Past medical history atrial fibrillation, hypertension, coronary artery disease , AICD placement Past surgical history: Right total knee replacement, back surgery, hemorrhoid surgery Social history: Patient quit smoking in 2006. He drinks alcohol socially. Family history: Mother with cancer and heart disease. Father had heart disease and A. fib. Brother had ALS. Review of Systems All other systems reviewed negative except as stated in HPI [facility] - History History Provided By: Patient - Medical History Medical History: Medical History (Last Reviewed 07/23/18 @ 12:10 by Walt Torres DO) Hypertension Myocardial infarct Cardiac defibrillator in place FHx: total knee replacement - Surgical History Surgical History: Surgical History (Last Reviewed 07/23/18 @ 12:10 by Walt Torres DO) H/O heart artery stent - Tobacco History Smoking Status: Former smoker - Alcohol History How Often Do You Have a Drink Containing Alcohol: 2 to 4 times a month - Substance Use History Substance History: No History of Abuse - Travel History Recent Travel in the [place] Within the Last 8 Weeks: No Recent Travel Out of the Country Within the Last 8 Weeks: No - Immunization History Tetanus Immunization: Unsure Medications and Allergies Active Medications: Active Medications Acetaminophen (Tylenol) 650 mg PO Q4H PRN PRN Reason: Headache, fever, pain 1-4 Al Hydroxide/Mg Hydroxide (Milk Of Magnesia Liq) 30 ml PO Q12H PRN PRN Reason: Mild Constipation Bisacodyl (Dulcolax Supp) 10 mg RECTAL DAILY PRN PRN Reason: SEVERE CONSITIPATION Heparin Sodium/Dextrose (Heparin/D5w 25,000 U/250 Ml) 25,000 unit in 250 mls @ 0 mls/hr IV.CONT TITRATE PRN; Protocol PRN Reason: Per Protocol Nitroglycerin/Dextrose (Nitroglycerin Drip Premix) 50 mg in 250 mls @ 0 mls/hr IV.CONT TITRATE PRN; Protocol PRN Reason: Per Protocol Lactulose (Lactulose Liq) 30 ml PO DAILY PRN PRN Reason: SEVERE CONSITIPATION Ondansetron HCl (Zofran Inj) 4 mg IV.PUSH Q6H PRN PRN Reason: NAUSEA OR VOMITING Sennosides (Senokot) 17.2 mg PO Q12H PRN PRN Reason: Moderate Constipation Allergies Allergy/AdvReac Type Severity Reaction Status Date / Time eptifibatide AdvReac Severe BLEEDING Verified 07/23/18 09:42 Home Medications Medication Instructions Recorded Confirmed Type aspirin [Aspir-81] 81 mg PO DAILY 07/23/18 07/23/18 History nebivolol [Bystolic] 5 mg PO DAILY 07/23/18 07/23/18 History sacubitril-valsartan [Entresto] 24 - 26 mg PO BID 07/23/18 07/23/18 History simvastatin 20 mg PO QPM 07/23/18 07/23/18 History Exam Vital signs: Vital Signs 07/23/18 09:39 07/23/18 09:45 07/23/18 10:24 Temperature 97.9 F Pulse Rate 67 78 Respiratory Rate 24 18 Blood Pressure 134/72 138/65 Pulse Oximetry 98 93 L 92 L 07/23/18 10:27 07/23/18 10:28 Temperature Pulse Rate 65 67 Respiratory Rate 18 Blood Pressure 111/52 L Pulse Oximetry 97 Intake & Output 07/22/18 07/23/18 07/23/18 18:59 06:59 18:59 Weight 131.542 kg Narrative: GENERAL: This is a well-nourished, well-developed patient, in no apparent distress. Morbidly obese. SKIN: No rashes, ecchymoses or lesions. Warm and dry. HEAD: Atraumatic. Normocephalic. No temporal or scalp tenderness. EYES: Pupils equal round and reactive. No injection or drainage. ENT: Nose without bleeding, purulent drainage or septal hematoma. Airway patent. NECK: Trachea midline. No lymphadenopathy. Supple, nontender, no meningeal signs. CARDIOVASCULAR: Regular rate and rhythm without murmurs, gallops, or rubs. No JVD. RESPIRATORY: Clear to auscultation. Breath sounds equal bilaterally. No wheezes , rales, or rhonchi. GASTROINTESTINAL: Obese Abdomen, soft, non-tender, nondistended. No guarding. MUSCULOSKELETAL: Extremities without clubbing, cyanosis, or edema. NEUROLOGICAL: Awake and alert. Cranial nerves II through XII intact. No focal neurological deficits. Normal speech. Results - Labs CBC & Chem 7: 07/23/18 09:55 07/23/18 09:55 Labs: Laboratory Results - last 24 hr 07/23/18 07/23/18 07/23/18 09:55 09:55 09:55 WBC 7.7 RBC 4.51 Hgb 14.8 Hct 42.1 MCV 93.4 MCH 32.7 MCHC 35.1 RDW 14.5 Plt Count 171 MPV 8.1 Neut % (Auto) 63.1 Lymph % (Auto) 25.1 [place] % (Auto) 7.6 Eos % (Auto) 3.3 Baso % (Auto) 0.9 Neut # (Auto) 4.9 Lymph # (Auto) 1.9 [place] # (Auto) 0.6 Eos # (Auto) 0.3 Baso # (Auto) 0.1 WBC Differential . Differential Comment Auto diff final PT INR APTT Sodium 139 Potassium 4.8 Chloride 105 Carbon Dioxide 28.0 Anion Gap 6 BUN 16 Creatinine 0.77 Estimated GFR Greater than 89 Random Glucose 121 H Calcium 8.2 L Magnesium Total Bilirubin 0.4 AST 38 H ALT 52 Alkaline Phosphatase 77 Total Creatine Kinase CK-MB (CK-2) Troponin I Less than 0.02 L B-Natriuretic Peptide 65 Total Protein 7.7 Albumin 3.5 07/23/18 07/23/18 09:55 09:55 WBC RBC Hgb Hct MCV MCH MCHC RDW Plt Count MPV Neut % (Auto) Lymph % (Auto) [place] % (Auto) Eos % (Auto) Baso % (Auto) Neut # (Auto) Lymph # (Auto) [place] # (Auto) Eos # (Auto) Baso # (Auto) WBC Differential Differential Comment PT 10.8 INR 1.1 APTT 28.0 Sodium Potassium Chloride Carbon Dioxide Anion Gap BUN Creatinine Estimated GFR Random Glucose Calcium Magnesium 2.0 Total Bilirubin AST ALT Alkaline Phosphatase Total Creatine Kinase 160 CK-MB (CK-2) 2.3 Troponin I B-Natriuretic Peptide Total Protein Albumin - Imaging Impressions Chest X-Ray 07/23/18 09:54 CONCLUSION: Mild cardiomegaly. No acute findings identified. Caprini VTE Risk Assessment Caprini VTE Risk Assessment: Moderate/High Risk (score >= 2) Caprini Risk Assessment Model: Point Value = 1 Point Value = 2 Point Value = 3 Point Value = 5 Age 41-60 Minor surgery BMI > 25 kg/m2 Swollen legs Varicose veins or History of unexplained or recurrent spontaneous Oral contraceptives or hormone replacement Sepsis (< 1 month) Serious lung disease, including pneumonia (< 1 month) Abnormal pulmonary function Acute myocardial infarction Congestive heart failure (< 1 month) History of inflammatory bowel disease Medical patient at bed rest Age 61-74 Arthroscopic surgery Major open surgery (> 45 min) Laparoscopic surgery (> 45 min) Malignancy Confined to bed (> 72 hours) Immobilizing plaster cast Central venous access Age >= 75 History of VTE Family history of VTE Factor V Leiden Prothrombin [id number] Lupus anticoagulant Anticardiolipin antibodies Elevated serum homocysteine Heparin-induced thrombocytopenia Other congenital or acquired thrombophilia Stroke (< 1 month) Elective arthroplasty Hip, pelvis, or leg fracture Acute spinal cord injury (< 1 month) Prophylaxis Regimen: Total Risk Factor Score Risk Level Prophylaxis Regimen 0-1 Low Early ambulation 2 Moderate Order ONE of the following: *Sequential Compression Device (SCD) *Heparin 5000 units SQ BID 3-4 Higher Order ONE of the following medications: *Heparin 5000 units SQ TID *Enoxaparin/Lovenox 40 mg SQ daily (WT < 150 kg, CrCl > 30 mL/min) *Enoxaparin/Lovenox 30 mg SQ daily (WT < 150 kg, CrCl > 10-29 mL/min) *Enoxaparin/Lovenox 30 mg SQ BID (WT < 150 kg, CrCl > 30 mL/min) AND/OR *Sequential Compression Device (SCD) 5 or more Highest Order ONE of the following medications: *Heparin 5000 units SQ TID (Preferred with Epidurals) *Enoxaparin/Lovenox 40 mg SQ daily (WT < 150 kg, CrCl > 30 mL/min) *Enoxaparin/Lovenox 30 mg SQ daily (WT < 150 kg, CrCl > 10-29 mL/min) *Enoxaparin/Lovenox 30 mg SQ BID (WT < 150 kg, CrCl > 30 mL/min) AND *Sequential Compression Device (SCD) Assessment and Plan - Plan Mr. Magallanes is a pleasant 57-year-old male with a history of ischemic cardiomyopathy who presents to the emergency department due to chest pain which is substernal and initially sharp and mild pressure-like sensation with radiation to the left arm. His pain started on 07/18/2018. At the time of this interview on 07/23/2018, patient continues to have chest pain. Acute chest pain Possibly unstable angina. Patient is currently on nitroglycerin as well as heparin drip per cardiology recommendations. Patient follows up with data the heart [facility] (Dr. Carter). Will consult cardiology. We will continue aspirin 81 mg daily. Patient received total full dose aspirin including his home dose today. Heart rate is somewhat low in the upper 50s. Will avoid beta-michael at this point. Ischemic cardiomyopathy LV ejection fraction 20-25%. Has AICD. We will continue Bystolic 5 mg daily and Entresto 2426 Twice daily If okay with cardiology, we should consider a different statin than simvastatin. Consider Crestor as patient apparently had some reaction to Lipitor before. We should also consider long-acting nitrate isosorbide mononitrate for symptom control. Morbid obesity Cardiac rehab and/or weight loss program would be very beneficial for this patient. Full code. Heparin drip.
[2018-07-23] MEDS ORDERED: Sodium Chlor 0.9% Inj 500 ML IV.SIG ONE ×2 (11:25→12:53)
--- NOTE | 2018-07-23 12:53 | ECG ---
Date Performed: 07/23/2018 Time Performed: 09:46:48 PTAGE: 57 years EKG: Sinus rhythm PROBABLE LATERAL MYOCARDIAL INFARCTION INFERIOR MYOCARDIAL INFARCTION ABNORMAL ECG NO PREVIOUS TRACING DOCTOR: Vikram Belcher Interpretating Date/Time 07/23/2018 12:52:44
[2018-07-23 13:11] LABS: Creatine Kinase 122 U/L (39-308)
[2018-07-23] MEDS ORDERED: diazePAM 5 MG Tablet PO SCH (13:15)
[2018-07-23 13:26] LABS: Creatine Kinase MB 2.2 ng/mL (0.5-3.6)
--- NOTE | 2018-07-23 13:36 | MB ---
cc: Willy Wang MD DATE: 07/23/2018 REASON FOR CONSULTATION: Evaluation of chest pain. CHIEF COMPLAINT: Chest pain. HISTORY OF PRESENT ILLNESS: Gilles Magallanes is a 57-year-old man with a known ischemic cardiomyopathy. He has a history of an inferior wall myocardial infarction 08/2006 with a stent of a distal right coronary artery. He has had multiple heart catheterizations since that time, but has not had any further lesions or required revascularization. He has had no ischemia on a stress test from November 2016 and from 10/15/2017. He comes in now with complaints that Saturday, he had some sharp chest pain that he says he started getting a heavy pressure sensation in his chest at 6 a.m. with radiation down the left arm. He was brought into the ER. Initial troponin is negative. The pain is ongoing. He has been started on a heparin drip. Blood pressure came down with nitro, but the chest pain is continuing. MEDICATIONS: Include: 1. Bystolic 5 mg. 2. Entresto / b.i.d. 2. Aspirin 81 mg. 3. Simvastatin 20 mg. 4. Fish oil. 5. Levothyroxine 25 mcg. PAST MEDICAL HISTORY: Includes hypertension, morbid obesity, previous DC, [employer]tronic defibrillator, right total knee replacement, previous right coronary stent. SOCIAL HISTORY: He is a former smoker. Drinks rarely. ALLERGIES: He is INTOLERANT TO LISINOPRIL due to cough. INTOLERANT OF INTEGRILIN and RANEXA. FAMILY HISTORY: Positive for heart disease. PHYSICAL EXAMINATION: GENERAL: Shows a morbidly obese white male. He appears uncomfortable. VITAL SIGNS: Charted. HEENT: Unremarkable. NECK: No JVD. No bruits. CHEST: Clear to auscultation. CARDIOVASCULAR: Distant S1, S2. Regular rate and rhythm without murmurs or gallops. The ICD is in the left infraclavicular region. ABDOMEN: Morbidly obese and Soft. EXTREMITIES: Reveal no clubbing, cyanosis or edema. Pulses are intact. LABORATORY DATA: Hematocrit of 42.1, creatinine 0.77. Troponins less than 0.02. PT and PTT were normal. A chest x-ray shows mild cardiomegaly and no acute findings. IMPRESSION: Unstable angina. No evidence for infarction. PLAN: I called the patient n.p.o., planned a diagnostic cardiac catheterization later today. MD MARLYS Delacruz/yvette , 01:04 PM , 01:11 PM
[2018-07-23] MEDS ORDERED: fentaNYL Citrate Inj 100 MCG/2 ML Ampul ONE ×2 (16:59→18:21)
[2018-07-23] MEDS ORDERED: Lidocaine PF 1% Inj 30 ML Vial ONE (16:59)
--- NOTE | 2018-07-23 18:43 | CATHPROC ---
[facility] HIS Report Study Information Study Number Admission Scheduled Start Study Start [id number] Jul 23 2018 11:08AM 07/23/2018 Jul 23 2018 4:42PM [facility] Service Electrophysiology Study Admit Source Facility Department Emergency department [facility] - Supervisor Heavy Equipment Physician and Clinical Staff Initial Willy Mcintosh Mental Health Aides Teacher Mercedes Sanchez,ELISSA Mental Health Aides Teacher Misael Shafer RN Mental Health Aides Teacher Marita Carballo,ELISSA Recorder Ophelia Loaiza,RT(R) Recorder Chari Cross,RT(R) ScrKelvin Mijares RCIS(BS) Procedures Performed Procedure Location (Site) Vessel Name Coronary Angiograms LCA Left Coronary Coronary Angiograms RCA Right Coronary L Heart Cath Wire insertion Radial (right) Radial Art. Equipment Time Export Administrator Description Size Mfg Part Number Used/Scraped [id number] 17:14 ARGON/MAXXIM BAND BAG W/RUBBERBAND * Used *[id number] TRANSDUCER, TRUWAVE [id number] 16:50 DUBON ALMODOVAR * Used W/STOCKCOCK *[id number] TIG 4.0 GUIDE CATHETER [id number] 18:15 [employer] SCIENTIFIC FR 6 Used CONVEY *[id number] [phone] *[id number] [phone] *[id number] 16:50 MALLINCKRODT SYRINGE, ANGIOMAT 150ML 150ML *[id number] Used 2SUB [id number] 16:50 [email or web address] BLANKET,WARM AIR CCL * Used *[id number] 16:50 [email or web address] PACK, CCL CUSTOM * Used *[id number] 16:50 [email or web address] SUPPORT, ARTERIAL ADULT 19341 *[id number] Used [id number] 16:50 [employer] PACER PEN, SKIN DUAL W/ RULER * Used *[id number] 17:53 [employer]/AVE EBU 3.5 Z2 GUIDE CATHETER FR 6 Used *[id number] BAND, RADIAL COMPRESSION TR [id number] 18:26 [employer] MEDICAL 29CM Used LARGE 29 *[id number] 16:50 [employer] MEDICAL WIRE, EXCHANGE 260CM 3MMJ 260CM Used *[id number] PROBE COVER, STERILE [id number] 17:21 [facility] ([facility]) MEDICAL * Used ULTRASOUND W/ GEL *[id number] 16:50 NAMIC MANIFOLD, 4 PORT * Used *[id number] 17:26 [employer] OMNIPAQUE, 350 MG, 150ML 150ML [id number] Used 18:03 [employer] OMNIPAQUE, 350 MG, 50ML 50ML [id number] Used 16:50 [employer] JELCO NEEDLE 4056 *[id number] Used CATHETER, FR5 OPTITORQUE [id number] 17:10 TERUM[employer] MEDICAL FR 5 Used RADIAL TIG 4.0 *[id number] SHEATH, FR6 TRANSRADIAL 80-1060 16:50 TERUM[employer] MEDICAL FR 6 Used SLENDER 10CM *[id number] 17:41 [employer] PRIME WIRE, VERRATA 185CM 185CM Used *[id number] Equipment Model, Serial, Lot Number and Expiration Data Description Model Number Serial Number Lot Number Expiration Date PRIME WIRE, VERRATA 185CM [id number] 05-25-2021 TIG 4.0 GUIDE CATHETER CONVEY [id number] 01-23-2021 History: Current Medications Medication Dosage/Unit Route Frequency Last Date/Time Taken ASA Statins (any) HEPARIN History: Allergies Allergy Reaction eptifibatide BLEEDING History: Risk Factors Family History of Hypertension Dyslipidemia Previous AL Previous Heart Failure Premature CAD Yes Yes Yes Yes No Prior Valve Prior PCI Prior PCIDate Prior CABG Surgery No Yes 08/26/2006 No Cerebrovascular Peripheral Artery Chronic Lung On Dialysis Diabetes Disease Disease Disease No No No No No History: Symptoms/Diagnosis Selection Items Chest pain History: CV Disease Selection Items Known CAD History: Stress Tests Stress or Imaging Studies Performed No History: Other Disease Selection Items CAD HTN History: Other Current Smoker No Labs Hgb (g/dl) Hct (%) WBC (l/cumm) Platelets (thousands) 11.60-17.00 35.00-51.00 4.00-11.00 150.00-450.00 14.8 42.1 7.7 171 Glucose (mg/dl) BUN (mg/dl) Creatinine (mg/dl) BUN:Creatinine (1:x) 74.00-106.00 7.00-18.00 0.50-1.30 10.00-20.00 121 16 0.7 22.9 Na (meq/l) K (meq/l) 136.00-145.00 3.50-5.10 139 4.8 INR (PTT:PT) 0.90-1.10 1.1 Troponin I (ng/ml) CPK (u/l) CPK-MB (ng/ML) 0.02-0.05 26.00-308.00 0.50-3.60 0.02 122 Not Drawn Medication Medication Total Dose (Bolus/Oral) Medication Total Dosage/Unit 1% XYLOCAINE 5 mL FENTANYL 125 mcg HEPARIN 2500 units NTG (IC) 300 mcg OXYGEN 2 l/min RADIAL COCKTAIL 5 mL (Bolus) VERSED 3 mg Medications (Bolus/Oral) Medication Time Given Dosage/Unit Administered By Reason VERSED 07/23/2018 5:14:02 PM 1 mg Hollis, Misael 1 mg VERSED given in lab by Misael Shafer RN in Left Antecubital via Peripheral IV. Ordered by Willy Wang. FENTANYL 07/23/2018 5:16:08 PM 25 mcg Hollis, Misael 25 mcg FENTANYL given in lab by Misael Shafer RN in Left Antecubital via Peripheral IV. Ordered by Willy Cohen. 1% XYLOCAINE 07/23/2018 5:16:50 PM 5 mL Willy Wang 5 mL 1% XYLOCAINE given in lab by Willy Wang in Right Radial via Subcutaneous. FENTANYL 07/23/2018 5:22:34 PM 25 mcg Hollis, Misael 25 mcg FENTANYL given in lab by Misael Shafer RN in Left Antecubital via Peripheral IV. Ordered by Willy Cohen. Ntg 200mcg Verapamil 2.5mg Heparin RADIAL COCKTAIL 07/23/2018 5:24:54 PM 5 mL (Bolus) Willy Wang 2500U 5 mL (Bolus) RADIAL COCKTAIL given in lab by Willy Wang in Right Radial via Radial. Using [Solutio n Name]. Reason: Ntg 200mcg Verapamil 2.5mg Heparin 2500U. HEPARIN 07/23/2018 5:42:48 PM 2500 units Marita Carballo 2500 units HEPARIN given in lab by Marita Carballo RN via Peripheral IV. VERSED 07/23/2018 5:47:38 PM 1 mg Hollis, Misael 1 mg VERSED given in lab by Misael Shafer RN via Peripheral IV. NTG (IC) 07/23/2018 5:47:52 PM 150 mcg Willy Wang 150 mcg NTG (IC) given in lab by Willy Wang via Intra-coronary. OXYGEN 07/23/2018 5:51:23 PM 2 l/min Misael Shafer 2 l/min OXYGEN given in lab by Misael Shafer RN via Nasal. NTG (IC) 07/23/2018 6:10:16 PM 150 mcg Willy Wang 150 mcg NTG (IC) given in lab by Willy Wang via Intra-coronary. VERSED 07/23/2018 6:17:21 PM 1 mg Misael Shafer 1 mg VERSED given in lab by Misael Shafer RN via Peripheral IV. FENTANYL 07/23/2018 6:18:29 PM 50 mcg Hollis, Misael 50 mcg FENTANYL given in lab by Misael Shafer RN via Peripheral IV. FENTANYL 07/23/2018 6:22:44 PM 25 mcg Hollis, Misael 25 mcg FENTANYL given in lab by Misael Shafer RN via Peripheral IV. Medication (Drip) Medication Time Given Dosage/Unit Concentration/Unit Diluent (ml) Solution IV Solutions 07/23/2018 4:42:46 PM 50 mL (IV) NaCl .9 IV Solutions given in lab by Mercedes Sanchez RN in Left Antecubital via Peripheral IV. Pump/Drip Demetri w using NaCl .9. Final Case Assessment Cardiovascular HR Rhythm NIBP Chest Pain 59 reg 138/87 0 Edema Present Skin color Skin None Normal Warm Circulatory - Right Pulses Dorsalis Pedis Femoral Radial 2 2 2 Scale (0,1,2,3,4,d) Scale (0,1,2,3,4,d) Circulatory - Lower Extremities Color Lower Right Normal Neurological State Oriented to time-place- Alert Moves all extremities person Respiration - General Respiration Rate SpO2 (%) O2 (lpm) (B/min) 20 95 2 Chronological Log Time Study Chronological Log 16:42:09 Patient arrived via Bed. 16:42:09 Patient Name, D.O.B, / Armband Verified By R.N. 16:42:10 Consent signed by the physician and the patient and verified by the Supervisor Heavy Equipment staff. 16:42:10 Pre-op and post- op instructions given; patient acknowledges understanding of instructions. 16:42:37 Presedation assessment performed by Supervisor Heavy Equipment RN. 16:42:38 Immediate Presedation assesment performed by physician. 16:42:39 Patient has been NPO for More than 6Hrs. 16:42:40 Skin Breakdown- reddened pustules bilateral underarm areas and groins 16:42:42 Patient Warmer Placed on the Table. 16:42:43 Sergei Prominences Protected 16:42:45 A # 18 IV was noted in the Antecubital (right). Grade = 0 16:42:45 A # 20 IV was noted in the Antecubital (left). Grade = 0 16:42:46 IV Solutions given in lab by Mercedes Sanchez RN in Left Antecubital via Peripheral IV. Pum p/Drip Flow using NaCl .9. 16:42:47 History and physical on the chart or being dictated. 16:55:11 Right Radial and groin(s) prepped with 2% chlorhexidine, and draped after a 3 min. waiting time. 17:02:31 MD paged 17:03:39 Reference ECG taken 17:07:09 Pressure channel 1 zeroed. 17:07:26 MD arrived. Vitals capture started with the following parameters, Patient=Adult, Interval=5 min, Initial Pr hjbbuq=795 mmHg, 17:07:32 Deflation Rate=5 mmHg, Cuff placed on Left Arm 17:08:11 HR=56 bpm, NUXJ=721/81 mmhg, SpO2=92.0 %, Resp=14 B/min 17:13:08 HR=58 bpm, AOOB=343/84 mmhg, SpO2=93.0 %, Resp=18 B/min Time Out. Correct patient, correct procedure, correct physician, labs, allergies, and equipment verified with laborer/key man 17:13:13 team present. Fire risk assesment completed (see hard stop sheet for coding). Time Out Conc urred by MD and individual staff in procedure. 17:14:02 1 mg VERSED given in lab by Misael Shafer RN in Left Antecubital via Peripheral IV. Ordered by Willy Wang. 17:16:08 25 mcg FENTANYL given in lab by Misael Shafer RN in Left Antecubital via Peripheral IV. Ord ered by Willy Wang. 17:16:48 Case Start 17:16:50 5 mL 1% XYLOCAINE given in lab by Willy Wang in Right Radial via Subcutaneous. 17:18:09 HR=63 bpm, HQBC=050/78 mmhg, SpO2=92.0 %, Resp=20 B/min 17:22:34 25 mcg FENTANYL given in lab by Misael Shafer, RN in Left Antecubital via Peripheral IV. Ord ered by Willy Wang. 17:23:05 Access site was Right Radial Artery via ultrasound. 17:23:06 HR=60 bpm, COER=456/74 mmhg, SpO2=92.0 %, Resp=20 B/min A SHEATH, FR6 TRANSRADIAL SLENDER 10CM FR 6 was advanced into the Radial (right) using the Perc utaneous 17:23:18 technique. 5 mL (Bolus) RADIAL COCKTAIL given in lab by Willy Wang in Right Radial via Radial. Using [S olution Name]. 17:24:54 Reason: Ntg 200mcg Verapamil 2.5mg Heparin 2500U. A CATHETER, FR5 OPTITORQUE RADIAL TIG 4.0 FR 5 was advanced over a wire. OMNIPAQUE, 350 MG, 150 ML 150ML 17:26:15 was used for injections. 17:28:12 HR=71 bpm, ITIE=893/69 mmhg, SpO2=94.0 %, Resp=18 B/min Recorded Pressure: Ao, HR=70, Condition=Condition 1 17:28:47 (Aorta) Ao 111/78/93 17:29:29 The LCA was injected and visualized at various angles. OMNIPAQUE, 350 MG, 150ML 150ML used . 17:33:05 HR=85 bpm, HVRT=367/80 mmhg, SpO2=90.0 %, Resp=17 B/min 17:34:33 The RCA was injected and visualized at various angles. OMNIPAQUE, 350 MG, 150ML 150ML used . 17:38:06 HR=76 bpm, LJMY=550/79 mmhg, SpO2=90.0 %, Resp=19 B/min, Pain=0, Sri=10, Saul=2 17:38:39 Catheter was removed 17:39:11 Activated Clotting Time Drawn A JR 4.0 GUIDE CATHETER FR 6 was advanced over a wire. OMNIPAQUE, 350 MG, 150ML 150ML was used for 17:39:50 injections. 17:42:42 ACT (Normal Range 90-180) = 209 17:42:48 2500 units HEPARIN given in lab by Marita Carballo, RN via Peripheral IV. 17:43:07 HR=70 bpm, TGYZ=927/84 mmhg, SpO2=96.0 %, Resp=22 B/min, Pain=0, Sri=10, Saul=2 17:43:44 Pressure channel 1 zeroed. 17:45:38 A PRIME WIRE, VERRATA 185CM 185CM was inserted via Radial (right). 17:47:38 1 mg VERSED given in lab by Misael Shafer RN via Peripheral IV. 17:47:52 150 mcg NTG (IC) given in lab by Willy Wang via Intra-coronary. 17:48:06 HR=73 bpm, GVAH=815/80 mmhg, SpO2=89.0 %, Resp=19 B/min, Pain=0, Sri=10, Saul=2 17:51:23 2 l/min OXYGEN given in lab by Misael Shafer RN via Nasal. 17:51:40 Flow Wire was was placed in the RCA Dist. The FFR measures ~FFR~ percent. The IFR measures 0.99 Percent. 17:52:48 Flow Wire was was placed in the RCA Prox. The FFR measures ~FFR~ percent. The IFR measures 0.99 Percent. 17:53:11 HR=68 bpm, WFXO=065/72 mmhg, SpO2=92.0 %, Resp=20 B/min, Pain=0, Sri=10, Saul=2 17:53:20 The PRIME WIRE, VERRATA 185CM 185CM was removed from rca After removing the current catheter a EBU 3.5 Z2 GUIDE CATHETER FR 6 was advanced over a WIRE, EXCHANGE 17:53:43 260CM 3MMJ 260CM. 17:55:49 Activated Clotting Time Drawn 17:58:08 HR=73 bpm, OLDV=964/81 mmhg, SpO2=92.0 %, Resp=21 B/min, Pain=0, Sri=10, Saul=2 18:00:01 ACT (Normal Range 90-180) = 211 After removing the current catheter a AL 1 GUIDE CATHETER FR 6 was advanced over a WIRE, EXCHAN GE 260CM 18:00:43 3MMJ 260CM. 18:03:11 HR=67 bpm, UZHP=188/84 mmhg, SpO2=92.0 %, Resp=19 B/min, Pain=0, Sri=10, Saul=2 18:04:28 A PRIME WIRE, VERRATA 185CM 185CM was inserted via Radial (right). 18:08:12 HR=62 bpm, YKHG=983/71 mmhg, SpO2=92.0 %, Resp=17 B/min, Pain=0, Sri=10, Saul=2 18:10:16 150 mcg NTG (IC) given in lab by Willy Wang via Intra-coronary. 18:13:09 HR=78 bpm, ZVBL=902/87 mmhg, SpO2=92.0 %, Resp=18 B/min, Pain=0, Sri=10, Saul=2 18:14:48 Wire removed After removing the current catheter a TIG 4.0 GUIDE CATHETER CONVEY FR 6 was advanced over a WI RE, EXCHANGE 18:15:30 260CM 3MMJ 260CM. 18:17:21 1 mg VERSED given in lab by Misael Shafer RN via Peripheral IV. 18:18:10 HR=67 bpm, VTMN=873/80 mmhg, SpO2=95.0 %, Resp=13 B/min, Pain=0, Sri=10, Saul=2 18:18:29 50 mcg FENTANYL given in lab by Misael Shafer RN via Peripheral IV. 18:18:31 A PRIME WIRE, VERRATA 185CM 185CM was inserted via Radial (right). 18:22:44 25 mcg FENTANYL given in lab by Misael Shafer RN via Peripheral IV. 18:23:13 HR=71 bpm, HJPX=743/78 mmhg, SpO2=91.0 %, Resp=18 B/min, Pain=0, Sri=10, Saul=2 18:24:44 Flow Wire was was placed in the LAD Ost. The FFR measures ~FFR~ percent. The IFR measures 0 .96 Percent. 18:25:42 Flow Wire was was placed in the LAD Ost. The FFR measures ~FFR~ percent. The IFR measures 0 .97 Percent. 18:28:10 HR=67 bpm, GUFY=581/87 mmhg, SpO2=93.0 %, Resp=19 B/min, Pain=0, Sri=10, Saul=2 18:29:02 Flow Wire was was placed in the LAD Ost. The FFR measures ~FFR~ percent. The IFR measures 1 .03 Percent. 18:29:29 The PRIME WIRE, VERRATA 185CM 185CM was removed. 18:29:36 Catheter was removed 18:29:41 Case End (Physician broke scrub) Assessment: Final Case, HR=59 BPM, Rhythm=reg, AXJJ=773/87 mmhg, Chest Pain=0, Edema=None, Tyler r=Normal, Skin = Warm Right Pulses: Laurent Ped=2, Femoral=2, Radial=2 18:29:45 Lower Right Extremities: Color=Normal Neurological: State=Alert, Ox3, [place] Respiration: Resp=20 B/min, SpO2=95 %, O2=2 lpm 18:30:50 Catheter(s) removed without difficulty Radial Compression Device Used. 12 mLs of air placed in BAND, RADIAL COMPRESSION TR LARGE 29 29 CM. Affected 18:30:53 hand 95 % O2 saturation. 18:32:33 Sterile dressing applied to site 18:32:33 No case complications noted. 18:32:34 Cine recording checked. 18:32:36 Bedside Report will be given. 18:32:42 A Left Heart Cath was performed. 18:32:46 Clinical correlaton risk stratification. End Study - Maximum Contrast Load Max Contrast Load (mL) 939.3 End Study - Radiation Exposure Fluoro Time (minutes) 22.0 End Study - Sheaths Sheaths Pulled By Sheath Hold Time (min) Kelvin Melo End Study - Patient Disposition Complications Transferred To No Telemetry Bed
[2018-07-23] MEDS ORDERED: Misc Info for Pharmacy OTHER SCH (19:00)
--- NOTE | 2018-07-23 19:04 | MA ---
cc: Willy Wang MD DATE: 07/23/2018 BRIEF HISTORY: A 57-year-old morbidly obese man with a history of distal right coronary artery stent for an inferior wall myocardial infarction many years ago. He has had multiple catheterizations since then for chest pain all not showing any causes for the pain. He has had two nuclear stress tests within the past year and a half, one was 11/2016, one was in this year and neither one showing ischemia. He comes in, however, with typical substernal chest pressure, going down his left arm. The troponins have been negative. He has had prolonged discomfort. Cardiac catheterization is being performed to rule out an ischemic etiology. PROCEDURE PERFORMED: Coronary angiography, fractional flow reserve measurements of the right coronary artery and left anterior descending. DESCRIPTION OF PROCEDURE: The patient was brought to the cardiac catheterization lab in a fasting state. The right wrist was prepped and draped in sterile fashion. Using ultrasound and 1% lidocaine, a Terumo slender sheath was inserted without difficulty. Standard cocktail was administered. Next, coronary angiography was performed using a [place] catheter. He had ambiguous lesions in the ostium of the LAD, the proximal and distal right coronary artery. I used a JR4 guide and did IFR measurements of the right coronary artery. Heparin was given. ACT was monitored. The right coronary artery had an IFR of 0.99. I then tried to obtain an IFR of the LAD. I used the EBU 3.5 and finally a left one Amplatz and then finally a [place] guiding catheter, which allowed me to engage the LAD and do an IFR measurement of the LAD with a value of 0.96. There were no lesions needing revascularized. The guiding catheter was removed. The sheath is going to be removed with a Terumo band placed. There were no complications. FINDINGS: HEMODYNAMICS: 1. The aortic pressure is 111/78 with a mean of 93. 2. Coronary angiography. Coronary arteries are large. Left main coronary artery is large and normal appearing. The left anterior descending artery comes off the left main, had about a 60-degree angle. This vessel has an ostial stenosis, probably about 50%, appears not worse than 60%. Remainder of the LAD appears normal. The circumflex artery gives off a very large obtuse marginal branch and the distal circumflex, which appears normal. The right coronary artery is dominant and has about 50% proximal disease on the bent with an eccentric plaque and a 50% distal stenosis, which involves the previously placed stent. IFR of this was 0.99. CONCLUSIONS: Nonocclusive CAD. It is unclear what is causing his anginal pain. RECOMMENDATIONS: Medical management. MD MARLYS Delacruz/valentino , 06:36 PM , 06:43 PM
[2018-07-23] MEDS ORDERED: LORazepam 0.5 MG Tablet PO ONE (20:53)
[2018-07-24] MEDS: Sod Chloride 0.9% Inj 1,000 ML IV.CONT SCH ×2 (02:24→06:51)
[2018-07-24 08:06] LABS: Hematocrit 37.6 % (39.0-51.0); Hemoglobin 13.1 gm/dL (13.0-17.0); Mean Corpuscular Hemoglobin 32.4 pg (27.0-34.0); Mean Corpuscular Volume 92.7 fL (80.0-100.0); Mean Platelet Volume 8.4 fL (7.0-11.0); Platelet Count 142 th/mm3 (150-450); Red Blood Count 4.05 mil/mm3 (4.50-5.90); Red Cell Distribution Width 14.4 % (11.6-17.2); White Blood Count 7.8 th/mm3 (4.0-11.0)
[2018-07-24 08:48] LABS: Anion Gap 9 meq/L (5-15); Blood Urea Nitrogen 11 mg/dL (7-18); Calcium 7.6 mg/dL (8.5-10.1); Carbon Dioxide 22.8 meq/L (21.0-32.0); Chloride 109 meq/L (98-107); Glomerular Filtration Rate Greater Than 89 mL/min (>89); Glucose,Random 103 mg/dL (74-106); Potassium 3.8 meq/L (3.5-5.1); Sodium 141 meq/L (136-145); Troponin I 0.56 ng/mL (0.02-0.05)
--- NOTE | 2018-07-24 11:15 | P.PN ---
Subjective Interval history: seen with son at bedside admits to having some stress lately no complains of chest discomfort denies any reflux symptoms - baseline SOB- with history of CMP- EF 30%- states improved with current CHF regimen- ff by Dr. Montiel as OP Physical Exam Vital signs: Vital Signs 07/23/18 11:15 07/23/18 12:20 07/23/18 12:53 Temperature Pulse Rate 51 L 61 60 Respiratory Rate 18 18 18 Blood Pressure 83/46 L 88/45 L 84/48 L Pulse Oximetry 97 97 98 07/23/18 13:34 07/23/18 14:14 07/23/18 14:20 Temperature Pulse Rate 55 L 61 60 Respiratory Rate 18 Blood Pressure 103/54 L 112/55 L 119/59 L Pulse Oximetry 98 07/23/18 14:49 07/23/18 14:57 07/23/18 15:47 Temperature Pulse Rate 54 L 38 L 48 L Respiratory Rate 18 18 Blood Pressure 109/54 L 120/56 L 125/60 Pulse Oximetry 96 92 L 07/23/18 16:00 07/23/18 20:00 07/23/18 21:41 Temperature Pulse Rate 71 74 60 Respiratory Rate 14 18 Blood Pressure 148/86 H Pulse Oximetry 93 L 07/24/18 00:00 07/24/18 04:00 07/24/18 08:00 Temperature 98.0 F 98.1 F 98.4 F Pulse Rate 70 67 76 Respiratory Rate 16 20 18 Blood Pressure 131/75 119/74 136/78 Pulse Oximetry 94 L 95 97 07/24/18 09:00 07/24/18 10:00 Temperature Pulse Rate 72 76 Respiratory Rate Blood Pressure Pulse Oximetry Intake & Output 07/23/18 07/24/18 07/24/18 18:59 06:59 18:59 Intake Total 1000 / 1000 2130 / 2130 250 / 250 Output Total 450 / 450 Balance 1000 / 1000 1680 / 1680 250 / 250 Weight 131.542 kg 133.5 kg Intake: IV 1000 / 1000 1250 / 1250 250 / 250 Nitroglycerin Drip Premix 50 mg 250 / 250 In 250 ml @ Per Protocol IV. CONT TITRATE PRN Rx#:[id number] NS Inj 1,000 ML @ 100 mls/hr IV 1000 / 1000 .CONT .Q10H NORM Rx#:[id number] NS Inj 500 ML @ Wide Open IV. 1000 / 1000 SIG BOLUS ONE Rx#:[id number] Oral 880 / 880 Output: Urine 450 / 450 Narrative: GENERAL: no acute distress Morbidly obese. SKIN: No rashes, ecchymoses or lesions. Warm and dry. HEAD: Atraumatic. Normocephalic. No temporal or scalp tenderness. EYES: Pupils equal round and reactive. No injection or drainage. ENT: Nose without bleeding, NECK: Trachea midline. No lymphadenopathy. Supple, nontender, no meningeal signs. CARDIOVASCULAR: Regular rate and rhythm without murmurs, gallops, or rubs. No JVD. RESPIRATORY: Clear to auscultation. Breath sounds equal bilaterally. No wheezes , rales, or rhonchi. GASTROINTESTINAL: Obese Abdomen, soft, non-tender, nondistended. No guarding. MUSCULOSKELETAL: Extremities without clubbing, cyanosis, or edema. right wrist - cath site- no heamtoma NEUROLOGICAL: Awake and alert. Cranial nerves II through XII intact. No focal neurological deficits. Normal speech. Results - Labs CBC & Chem 7: 07/24/18 06:59 07/24/18 06:59 Laboratory Results - last 24 hr 07/23/18 07/24/18 07/24/18 12:14 06:59 06:59 WBC 7.8 RBC 4.05 L Hgb 13.1 Hct 37.6 L MCV 92.7 MCH 32.4 MCHC 35.0 RDW 14.4 Plt Count 142 L MPV 8.4 Sodium 141 Potassium 3.8 D Chloride 109 H Carbon Dioxide 22.8 Anion Gap 9 BUN 11 Creatinine 0.67 Estimated GFR Greater than 89 Random Glucose 103 Calcium 7.6 L Total Creatine Kinase 122 CK-MB (CK-2) 2.2 Troponin I Less than 0.02 L 0.56 H - Procedures 07/23- cardiac cath- no singnificant CAD Assessment and Plan - Plan Mr. Magallanes is a pleasant 57-year-old male with a history of ischemic cardiomyopathy who presents to the emergency department due to chest pain which is substernal and initially sharp and mild pressure-like sensation with radiation to the left arm. His pain started on 07/18/2018. At the time of this interview on 07/23/2018, patient continues to have chest pain. Acute chest pain- S/P cath- no signifcant CAD Known ischemic cardiomyoapthy S/P AICD LV ejection fraction 20-25%. Has AICD. We will continue Bystolic 5 mg daily and Entresto 2426 Twice daily If okay with cardiology, we should consider a different statin than simvastatin. - d/w him differential- like GI- GERD/ GB disease- - dneis any fatty intolerance, - suggest ff up with PCP- get US GB as OP - EGD as OP- states he has / Laxmi as GI- ff - history of colonic polyps- jsut did colonoscopy few months ago Morbid obesity Cardiac rehab and/or weight loss program would be very beneficial for this patient.- very motivated-0 states loss 20 pounds already Full code. diet - ehart healthy diet Activity as tolerated- - plays gold daily cotnineu home meds d/w patient and son extensively DC today OP ff up with PCP- get GB US./ GI referral as OP/ advise on weight reduction- stress management as OP OP ff up with Cardiology
--- NOTE | 2018-07-28 08:43 | P.PNCA ---
Subjective Interval history: Patient was seen 07/25/2018. Cath results explained in detail. Cause of chest pain determined to be noncardiac in origin even though it has features that sound suggestive of possible ischemia Medications and Allergies Active Medications: Active Medications Acetaminophen (Tylenol) 650 mg PO Q4H PRN PRN Reason: Headache, fever, pain 1-4 Al Hydroxide/Mg Hydroxide (Milk Of Magnesia Liq) 30 ml PO Q12H PRN PRN Reason: Mild Constipation Albuterol (Duoneb Neb (Prn)) 1 ampul NEB Q2HR NEB PRN PRN Reason: SHORTNESS OF BREATH/WHEEZING Last Admin: 07/23/18 21:40 Dose: 1 ampul Aspirin (Ecotrin) 81 mg PO DAILY [facility] Last Admin: 07/24/18 09:16 Dose: 81 mg Bisacodyl (Dulcolax Supp) 10 mg RECTAL DAILY PRN PRN Reason: SEVERE CONSITIPATION Nitroglycerin/Dextrose (Nitroglycerin Drip Premix) 50 mg in 250 mls @ 0 mls/hr IV.CONT TITRATE PRN; Protocol PRN Reason: Per Protocol Last Titration: 07/24/18 07:28 Dose: Infused Sodium Chloride (Ns Inj) 1,000 mls @ 100 mls/hr IV.CONT .Q10H [facility] Last Admin: 07/24/18 06:51 Dose: 100 mls/hr Lactulose (Lactulose Liq) 30 ml PO DAILY PRN PRN Reason: SEVERE CONSITIPATION Miscellaneous Information (Misc Info For Pharmacy/Read Comments) 1 each OTHER UNSCH [facility] Nebivolol (Bystolic) 5 mg PO DAILY [facility] Last Admin: 07/24/18 09:16 Dose: 5 mg Ondansetron HCl (Zofran Inj) 4 mg IV.PUSH Q6H PRN PRN Reason: NAUSEA OR VOMITING Sacubitril/Valsartan (Entresto 24 Mg/26 Mg Tablet) 1 tab PO BID [facility] Last Admin: 07/24/18 09:16 Dose: 1 tab Sennosides (Senokot) 17.2 mg PO Q12H PRN PRN Reason: Moderate Constipation Sodium Chloride (Ns Flush) 2 ml IV.FLUSH BID [facility] Last Admin: 07/24/18 09:16 Dose: 2 ml Sodium Chloride (Ns Flush) 2 ml IV.FLUSH PRN PRN PRN Reason: FLUSH AFTER USING IV ACCESS Allergies Allergy/AdvReac Type Severity Reaction Status Date / Time eptifibatide AdvReac Severe BLEEDING Verified 07/23/18 09:42 Home Medications Medication Instructions Recorded Confirmed Type aspirin [Aspir-81] 81 mg PO DAILY 07/23/18 07/23/18 History nebivolol [Bystolic] 5 mg PO DAILY 07/23/18 07/23/18 History sacubitril-valsartan [Entresto] 24 - 26 mg PO BID 07/23/18 07/23/18 History simvastatin 20 mg PO QPM 07/23/18 07/23/18 History Physical Exam Narrative: Alert, NAD chest clear CV S1S2 RRR he does have chest wall tenderness on left side Wrists OK Results 07/24/18 06:59 07/24/18 06:59 Assessment and Plan - Assessment (1) Coronary artery disease Code(s): I25.10 - Atherosclerotic heart disease of [place] coronary artery without angina pectoris Status: Acute Plan: Continued medical therapy. Lose weight.
== END 2018-07-24 11:45 | disposition home or self-care (01) ==
LOC: NEPC 09:37 → NEDA 09:37 → HCIS 18:45
PROVIDERS: ADMIT Internal Medicine; ATTEND Internal Medicine
DX: Z79.82 Long term (current) use of aspirin; I11.0 Hypertensive heart disease with heart failure; Y83.1 Surgical operation with implant of artificial internal device as the cause of abnormal reaction of the patient, or of later complication, without mention of misadventure at the time of the procedure; Z95.810 Presence of automatic (implantable) cardiac defibrillator; Z96.651 Presence of right artificial knee joint; I25.2 Old myocardial infarction; I50.9 Heart failure, unspecified; I25.110 Atherosclerotic heart disease of native coronary artery with unstable angina pectoris; I48.91 Unspecified atrial fibrillation; Z87.891 Personal history of nicotine dependence; Z86.010 Personal history of colon polyps; Z82.49 Family history of ischemic heart disease and other diseases of the circulatory system; Z80.9 Family history of malignant neoplasm, unspecified